=== PATIENT | female | born 1990 | race Caucasian/White ===

== ENCOUNTER 2020-04-20 18:24 | Emergency (ER) | payer OTHER, SELFPAY ==
[2020-04-20 18:32] VITALS: BP 123/66; PULSE 88; RESP 20; TEMP 36.8; O2SAT 99
--- NOTE | 2020-04-20 18:33 | ED.EAR ---
HPI - Ear Problem General Chief complaint: Ear Stated complaint: ear pain/pressure Time Seen by Provider: 04/20/20 18:41 Source: patient and RN notes reviewed History of Present Illness HPI Narrative: Patient is a 29-year-old female who presents the urgent care with complaints of bilateral otalgia. Patient states that the left ear has been hurting for approximately 1 month and she saw her PCP about a month ago and was treated with amoxicillin and told to use Flonase nasal spray. Patient states that she finished the amoxicillin has continued to use the Flonase without any relief. Patient states as of yesterday she has now having right ear pain. No other acute complaints. Denies any other upper respiratory symptoms. No fever. Patient aware of the plan of care. Related Data Allergies Allergy/AdvReac Type Severity Reaction Status Date / Time No Known Allergies Allergy Unknown Verified 04/20/20 18:38 Review of Systems Review of Systems: Narrative: CONSTITUTIONAL: Denies fever, chills, or sweats. EYES: Denies visual changes, redness, or discharge. ENT: Reports of bilateral otalgia, worse on the left CARDIOVASCULAR: Denies chest pain, palpitations, or edema. RESPIRATORY: Denies cough or dyspnea. GASTROINTESTINAL: Denies abdominal pain, nausea, vomiting, or diarrhea. GENITOURINARY: Denies dysuria or hematuria. SKIN: Denies rash or itching. MUSCULOSKELETAL: Denies back pain, joint pain, or myalgia. NEUROLOGIC: Denies headache, numbness, or weakness. All other systems reviewed are negative, except as documented in HPI. PMFSH Comments At the time of my signature, I reviewed and agree with the nursing past medical, surgical, social, and family history. There is no relevant family history pertinent to the patient complaint. Exam Narrative: Exam Narrative: GENERAL: This is a well-nourished, well-developed patient, in no apparent distress. HEAD: normocephalic, atraumatic. EYES: PERRL. Sclera clear/white. Vision is grossly intact. EARS: External ears normal, mildly edematous left external auditory canal without erythema or drainage, very mild fluid noted behind left TM without otitis media. Right TMs normal without perforation. Hearing grossly intact. NOSE: External nose normal with no obvious nasal discharge, nares without redness, no rhinorrhea. SKIN: warm, intact with no suspicious lesions or rash, good texture and turgor. NEURO: awake, alert, and oriented to person, place and time. There were no obvious focal neurologic abnormalities. EXTREMITIES: No clubbing, cyanosis, or edema. No joint tenderness, effusion, or edema noted. No calf tenderness. Negative Homans sign bilaterally. BACK: Nontender without deformity or crepitance. No flank tenderness. Course Vital Signs Vital signs: Vital Signs Temperature 98.2 F 04/20/20 18:32 Pulse Rate 88 04/20/20 18:32 Respiratory Rate 20 04/20/20 18:32 Blood Pressure 123/66 04/20/20 18:32 Pulse Oximetry 99 04/20/20 18:32 Temperature 98.2 F 04/20/20 18:32 Pulse Rate 88 04/20/20 18:32 Respiratory Rate 04/20/20 18:32 Blood Pressure 123/66 04/20/20 18:32 Pulse Oximetry 99 04/20/20 18:32 Reviewed Medical Decision Making MDM Narrative Medical decision making narrative: Advised patient to continue using Flonase nasal spray in conjunction with an antihistamine such as Benadryl or Claritin prior to bedtime. Use eardrops to the left ear as directed. Use warm compress to the ear as needed for comfort. Use ibuprofen as needed for pain. If you develop any increase in pain associated with fever or severe headache?go to the emergency room. Prolonged ear pain without any evidence of otitis may warrant ENT referral. Speak to your PCP regarding that referral. Follow-up with PCP within 2 to 5 days or for worsening symptoms or failure to improve. Differential Diagnosis Differential Diagnosis: Pneumonia, Allergic Rhinitis, Upper respiratory cough syndrome, Pharyngitis, Sinusi
== END 2020-04-20 18:52 | disposition home or self-care (01) ==
PROVIDERS: Emergency Provider Nurse Practitioner Family; PCP Nurse Practitioner
DX: H60.92 Unspecified otitis externa, left ear (principal)
CPT/HCPCS: 99213; G0463

== ENCOUNTER → 2021-06-22 09:55 | Outpatient (CLI) | payer OTHER, SELFPAY ==
--- NOTE | ~2021-06-22 | US_ITS ---
US transvaginal DATE: 06/22/2021 10:36 INDICATION: Pelvic and perineal pain TECHNIQUE: Real-time imaging via transvaginal approach COMPARISON: None FINDINGS: The uterus measures 6.4 cm height, 3 cm AP dimension. The central endometrial echo complex measures 6 mm AP dimension. Right ovary 2.2 x 1.6 x 1.7 cm, with vascular flow. Left ovary 1.8 x 1.3 x 1.7 cm, with vascular flow. No pelvic mass lesion or abnormal pelvic fluid collection is evident. IMPRESSION: No significant abnormality Reviewed, dictated and finalized at [facility] Reviewed, dictated and finalized at [facility]. IMPRESSION: No significant abnormality
== END ==
PROVIDERS: Visit Provider Nurse Practitioner
DX: R10.2 Pelvic and perineal pain (principal)
CPT/HCPCS: 76830

== ENCOUNTER 2021-11-13 18:33 | Emergency (ER) | payer OTHER, SELFPAY ==
[2021-11-13 18:57] VITALS: BP 137/82; PULSE 85; RESP 16; TEMP 36.7; O2SAT 99
--- NOTE | 2021-11-13 19:16 | ED.URI ---
HPI - URI/Sore Throat General Stated Complaint: head cold/cough/chest pain Time Seen by Provider: 11/13/21 19:16 Source: patient and family Mode of arrival: ambulatory History of Present Illness HPI Narrative: Patient presents with a 3-week history of chest congestion cough runny nose and sinus pressure. No shortness of breath and no chest pain. Patient states she is normally healthy individual. And is fully vaccinated for COVID-19. MD elicited complaint: cough, nasal congestion and sinus pain Related Data Allergies Allergy/AdvReac Type Severity Reaction Status Date / Time No Known Allergies Allergy Verified 11/13/21 19:27 Review of Systems Review of Systems: CONSTITUTIONAL: Denies chills, or sweats. Reports fever and generalized body aches EYES: Denies visual changes, redness, or discharge. ENT: Denies otalgia. Reports nasal congestion runny nose and sore throat CARDIOVASCULAR: Denies chest pain, palpitations, or edema. RESPIRATORY: Denies dyspnea. Reports occasional cough GASTROINTESTINAL: Denies abdominal pain, nausea, vomiting, or diarrhea. GENITOURINARY: Denies dysuria or hematuria. SKIN: Denies rash or itching. MUSCULOSKELETAL: Denies back pain, joint pain, or myalgia. Reports generalized body aches NEUROLOGIC: Denies headache, numbness, or weakness. PSYCHIATRIC: Denies anxiety or depression. [facility] Family History Family History (Updated 06/29/14 @ 07:13 by DOCTOR UNKNOWN) Mother Hypertension Social History Social History Smoking status: Current every day smoker Alcohol intake: current Substance use type: marijuana Comments At time of signature, agree with nursing past medical, surgical, social and family history. There is no relevant family history pertinent to the presenting complaint Exam Narrative: The patient is a well-developed, well-nourished in no acute distress. SKIN: Skin is warm and dry without erythema, swelling or exudate. There is good turgor. No tenting. HEAD: Atraumatic. Normocephalic. No temporal or scalp tenderness. EYES: Moist and bright. Sclera and conjunctivae normal. No discharge. PERRLA. Extraocular motions intact. Gross visual acuity intact. EARS: Pinna is normal shape and contour. Clear external auditory canals. TM pearly cardenas with good cone of light, no erythema or suppuration. Bilateral cerumen noted no gross hearing deficit. NOSE: pink, moist mucosa with good air movement. Clear rhinorrhea without nasal flaring. Septum midline. Moderate maxillary sinus pressure and tenderness Mouth: moist mucous membranes. THROAT; mild erythema noted to posterior oropharynx with moderate postnasal drainage. Without exudate or ulceration.. Uvula midline. Normal movement of soft palate. NECK: Supple and nontender with full range of motion without discomfort. No meningeal signs. LUNGS: Equal and bilateral breath sounds without wheezes, rales or rhonchi. CHEST: The chest wall is without retractions or use of accessory muscles. HEART: Has a regular rate and rhythm without murmur, gallops, click or rub. ABDOMEN: Soft, nontender with positive active bowel sounds. No rebound tenderness. EXTREMITIES: Without cyanosis, clubbing or edema. Equal 2+ distal pulses and 2 second capillary refill noted. NEUROLOGIC: alert, active, . The patient moves all extremities with normal muscle strength. Normal muscle tone is noted. Normal coordination is noted. NO focal neurological findings noted. Course Course Level of Care: Express Care Visit Vital Signs Vital signs: Vital Signs Temperature 36.7 C 11/13/21 18:57 Pulse Rate 85 11/13/21 18:57 Respiratory Rate 16 11/13/21 18:57 Blood Pressure 137/82 11/13/21 18:57 Pulse Oximetry 99 11/13/21 18:57 Temperature 36.7 C 11/13/21 18:57 Pulse Rate 85 11/13/21 18:57 Respiratory Rate 16 11/13/21 18:57 Blood Pressure 137/82 11/13/21 18:57 Pulse Oximetry 99 11/13/21 18:57 Please ISABELLA schedule a followup visit with your personal phy
== END 2021-11-13 19:40 | disposition home or self-care (01) ==
PROVIDERS: Emergency Provider Nurse Practitioner Family
DX: J01.00 Acute maxillary sinusitis, unspecified (principal); J06.9 Acute upper respiratory infection, unspecified; Z20.822 Contact with and (suspected) exposure to COVID-19; F17.200 Nicotine dependence, unspecified, uncomplicated; F12.90 Cannabis use, unspecified, uncomplicated
CPT/HCPCS: 87426; 99213; C9803; G0463

== ENCOUNTER 2025-01-19 14:25 | Emergency (ER) | payer SELFPAY ==
--- NOTE | 2025-01-19 14:29 | ED.GENADULT ---
HPI - General Adult General Chief complaint: Unspecified Stated complaint: flu symptoms Time Seen by Provider: 01/19/25 14:41 Source: patient, RN notes reviewed and old records reviewed Mode of arrival: ambulatory Limitations: no limitations History of Present Illness HPI narrative: 34-year-old female presents to the [facility] with complaints of a runny nose. Patient is also requesting a work note for today and tomorrow. Patient states that she called in because of her runny nose and having side pain that she has had since she was a child, currently not having any pain Treatments prior to arrival: none Related Data Home Medications ?Medication ?Instructions ?Recorded ?Confirmed ?Last Taken ?Type lamotrigine 25 mg tablet 25 mg PO DAILY 11/13/21 01/19/25 Unknown History buprenorphine 8 mg-naloxone 2 mg tablet sublingual 01/19/25 Unknown History sublingual tablet lurasidone 60 mg tablet mg 01/19/25 Unknown History sertraline 100 mg tablet mg 01/19/25 Unknown History Allergies Allergy/AdvReac Type Severity Reaction Status Date / Time No Known Allergies Allergy Verified 01/19/25 14:38 Review of Systems Review of Systems: All systems reviewed & are unremarkable except as noted in HPI and below Constitutional: Constitutional: Reports no additional constitutional complaints ENT: Reports as per HPI Cardiovascular: Cardiovascular: Reports no additional cardiovascular complaints, Denies chest pain and Denies dyspnea Respiratory: Respiratory: Reports no additional respiratory complaints, Denies chest congestion, Denies cough and Denies dyspnea Musculoskeletal: Musculoskeletal: Reports no additional musculoskeletal complaints Integumentary/Breasts: Skin/Breast: Reports system reviewed and no additional complaints, except as docu PMFSH Past Medical History Medical History (Updated 01/19/25 @ 19:51 by Angelic Shepard APRN) Bipolar disorder Right flank pain PCOS (polycystic ovarian syndrome) On assisted drug therapy Insulin resistance Family History Family History Mother Hypertension Social History Social History Smoking status: Current every day smoker Alcohol intake: current Substance use type: marijuana Comments At the time of my signature, I reviewed and agree with the nursing past medical, surgical, social, and family history. There is no relevant family history pertinent to the patient complaint. Exam Const: General: cooperative, healthy appearing, comfortable, no acute distress, well developed, alert and well nourished Nutritional Appearance: well nourished Orientation/consciousness: patient oriented x3 Limitations: no limitations HENMT: Head: normal to inspection Ears: hearing grossly normal bilaterally, external ears normal, TM's normal bilaterally, EAC's normal, mastoids normal and no periauricular adenopathy Face/Nose/Sinus: Normal external nose present, Nasal discharge present clear bilateral, sinuses nontender and face symmetric Throat: posterior oropharynx normal, uvula midline, postnasal drainage and no uvular edema Eyes: General: appearance normal, both eyes and all related structures Alignment and Position: alignment normal Neck: Neck: normal visual inspection, full ROM, no lymphadenopathy and no meningeal signs Chest: Chest palpation & inspection: normal inspection of the chest Resp: Effort & Inspection: normal respiratory effort and able to speak in complete sentences Auscultation: clear to auscultation bilaterally, no crackles, no rales, no rhonchi and no wheezes Cardio: Rate: regular rate Skin: General skin exam: normal color and no rashes or lesions noted Neuro: General: patient oriented x3, gait normal, moves all extremities and no meningeal signs Cognition (Neuro): normal cognition Speech: normal speech Gait exam (Neuro): Normal gait present Extrem: General: normal to inspection, full ROM, capillary refill normal and normal gait Psych: Appearance: grossly normal and well kempt Mental Status: mental status grossly normal Speech and movement: Normal speech and movement present and Clear speech present Affect: normal affect Attitude: cooperative Course Course Level of Care: Express Care Visit Vital Signs Vital signs: Vital Signs Temperature 97.0 F L 01/19/25 14:33 Pulse Rate 86 01/19/25 14:33 Respiratory Rate 16 01/19/25 14:33 Blood Pressure 129/62 01/19/25 14:33 Pulse Oximetry 95 01/19/25 14:33 Oxygen Delivery Room Air 01/19/25 14:33 Temperature 97.0 F L 01/19/25 14:33 Pulse Rate 86 01/19/25 14:33 Respiratory Rate 16 01/19/25 14:33 Blood Pressure 129/62 01/19/25 14:33 Pulse Oximetry 95 01/19/25 14:33 Oxygen Delivery Room Air 01/19/25 14:33 Reviewed Medical Decision Making MDM Narrative Medical decision making narrative: Patient sitting comfortably in exam room. Nontoxic, vitals stable. Patient in no acute distress Patient presents for a work note. States that she has had a runny nose. Requesting flu and COVID test which were negative. Patient appropriate for outpatient treatment with close follow-up Discharge instructions reviewed with patient, as well as provided in writing per nursing staff. The instructions also include specific and strict return/GO TO THE ER as well as f/u information. All questions have been answered, and the patient deny any further questions with discharge and discharge plan. Some parts of this dictation were generated by voice recognition software and may contain typographical and/or grammatical inaccuracies. Differential Diagnosis Differential Diagnosis: Seasonal allergies, URI, flu, cold Medical Records Medical records reviewed: Yes I reviewed the external patient's medical records. Vital Signs Vital Signs: Vital Signs Temperature 97.0 F L 01/19/25 14:33 Pulse Rate 86 01/19/25 14:33 Respiratory Rate 16 01/19/25 14:33 Blood Pressure 129/62 01/19/25 14:33 Pulse Oximetry 95 01/19/25 14:33 Oxygen Delivery Room Air 01/19/25 14:33 Temperature 97.0 F L 01/19/25 14:33 Pulse Rate 86 01/19/25 14:33 Respiratory Rate 16 01/19/25 14:33 Blood Pressure 129/62 01/19/25 14:33 Pulse Oximetry 95 01/19/25 14:33 Oxygen Delivery Room Air 01/19/25 14:33 Reviewed Lab Data Lab results reviewed: Yes I reviewed the patient's lab results. Labs: Lab Results 01/19/25 Range/Units 14:36 POC Influenza A Ag Negative (Negative) POC Influenza B Ag Negative (Negative) POC SARS CoV-2 Ag Negative (Negative) Reviewed Critical Care Time Critical Care Time Critical Care Time: No Discharge Plan Discharge Clinical Impression: Rhinorrhea, Seasonal allergies Patient Disposition: Home, Self-Care Condition: Stable Instructions: Antibiotic Form, Allergies (ED), Cold Symptoms (ED) Additional Instructions: Take Claritin daily Call make an appointment with your doctor for close follow-up Patient Language: Citizen Of [place] Prescriptions: New loratadine [Allergy Relief (loratadine)] 10 mg tablet 10 mg PO DAILY Qty: 30 0RF No Action albuterol sulfate [ProAir HFA] 90 mcg/actuation HFA aerosol inhaler 2 puff INHALATION QID PRN (Reason: shortness of breath or wheezing) Qty: 18 0RF lamotrigine 25 mg tablet 25 mg PO DAILY sertraline 100 mg tablet buprenorphine-naloxone 8-2 mg tablet, sublingual SUBLINGUAL lurasidone 60 mg tablet Follow-up/Referrals: UNKNOWN,DOCTOR [Non-Staff] - Stand Alone Forms: Work/School Release IP Time of Disposition: 14:51
[2025-01-19 14:33] VITALS: BP 129/62; PULSE 86; RESP 16; TEMP 36.1; O2SAT 95
--- OUTSIDE RECORDS SUMMARY | 2025-01-19 14:55 | XMS_ITS | Patient Health Record ---
Author Organization [facility] Address [address] [place] [address] Care Team Providers Care Executive Admin Name Role Phone Johnathan Pimentel Primary Care Provider Reason For Referral No Information Encounters Encounter Location Date Provider Diagnosis [address] [place] [address] 07/21/2024 Johnathan Pimentel Plan Of Treatment No Information
--- OUTSIDE RECORDS SUMMARY | 2025-01-19 14:55 | XMS_ITS | Clinical Summary ---
Author Organization [address] Address [address] [place] [id number] Care Team Providers Care [place] Name Role Phone Hailey Garrido MD Primary Care Provider + Allergies No known active allergies Medications cephalexin (KEFLEX) 500 mg capsule TK 1 C PO TID 0 01/22/2019 Active phenazopyridine (PYRIDIUM) 200 mg tablet TAKE 1 TABLET BY MOUTH THREE TIMES A DAY WITH FOOD NEEDED 0 01/18/2019 Active hydrOXYzine (ATARAX) 25 mg tablet 03/20/2021 Active fluconazole (DIFLUCAN) 150 mg tablet Take 150 mg by mouth daily 01/19/2021 Active clonazePAM (KlonoPIN) 0.5 mg tablet 03/20/2021 Active metFORMIN (GLUCOPHAGE) 500 mg tablet Take 500 mg by mouth 05/01/2020 Active Active Problems Problem Noted Date Diagnosed Date Infected sebaceous cyst 01/31/2019 Current every day smoker 01/31/2019 Medical History Medical History Date Comments PCOS (polycystic ovarian syndrome) Depression Over weight Family History Medical History Relation Name Comments No Known Problems Brother No Known Problems Father No Known Problems Father's Brother No Known Problems Father's Sister No Known Problems Maternal Grandfather No Known Problems Maternal Grandmother No Known Problems Mother No Known Problems Mother's Brother No Known Problems Mother's Sister No Known Problems Paternal Grandfather No Known Problems Paternal Grandmother No Known Problems Sister Relation Name Status Comments Brother Father Father's Brother Father's Sister Maternal Grandfather Maternal Grandmother Mother Mother's Brother Mother's Sister Paternal Grandfather Paternal Grandmother Sister Social History Tobacco Use Types Packs/Day Years Used Date Smoking Tobacco: Every Day Cigarettes 0.3 0.5 Smokeless Tobacco: Never Tobacco Cessation:Ready to Q uit: Yes; Counseling Given: Yes Alcohol Use Standard Drinks/Week Comments Yes 1 (1 standard drink = 0.6 oz pur e alcohol) Personal Safety Answer Date Recorded Getting School Help Needed Not on file 12/26 Comments No Sex and Gender Information Value Date Recorded Sex Assigned at Not on file Legal Sex Female 12:43 PM [employer] Gender Identity Not on file Sexual Orientation Not on file Obstetrics History Last Filed Vital Signs Vital Sign Reading Time Taken Comments Blood Pressure 124/80 08/14/2021 2:10 PM CDT Pulse 85 08/14/2021 2:10 PM CDT Temperature 37 C (98.6 F) 08/14/2021 2:10 PM CDT Respiratory Rate 16 07/31/2021 2:27 PM CDT Oxygen Saturation 95% 08/14/2021 2:10 PM CDT Inhaled Oxygen Concentration - - Weight 95.3 kg (210 lb) 08/14/2021 2:10 PM CDT Height 160 cm (5' 3 ) 08/14/2021 2:10 PM CDT Body Mass Index 37.2 08/14/2021 2:10 PM CDT Plan of Treatment Not on file Insurance [facility] Care Teams [place] Relationship Specialty Start Date End Date Hailey Garrido MD [address] [id number] PCP - General Gynecology 01/31/19
--- OUTSIDE RECORDS SUMMARY | 2025-01-19 14:55 | XMS_ITS | Clinical Summary ---
Author Organization [facility] [employer] [place] Address [address] [place] [address] Care Team Providers Care Bus Operator Name Role Phone Joseline Neal MD Primary Care Provider [phone] Allergies No known active allergies Medications clonazePAM (KlonoPIN) 0.5 mg TabletIndicatio ns:Anxiety state Take 1 Tablet (0.5 mg) by mouth 1 time daily as needed for Anxiety. 30 Tablet 2 Active sertraline (ZOLOFT) 100 mg tabletIndicatio ns:Moderate episode of recurrent major depressive disorder (CMS/HCC) Take 2 Tablets (200 mg) by mouth daily. 60 Tablet 2 Active Additional Information Patient taking differently: 100 mgOral DAILY, Reported on 02/08/2024 lurasidone HCl (LATUDA ORAL) Take by mouth. A ctive Active Problems Problem Noted Date Diagnosed Date Pelvic floor dysfunction in female 12/25/2021 Psychophysiological insomnia 02/24/2020 Interstitial cystitis 02/17/2020 Anxiety state 02/17/2020 Current every day smoker 01/31/2019 Resolved Problems Problem Noted Date Diagnosed Date Resolved Date Bipolar depression 02/17/2020 1 Encounters Date Type Department Care Team Description 01/07/2025 External Device Data [facility] ABSTRACTION Provider, Abstract 01/06/2025 External Device Data [facility] ABSTRACTION Provider, Abstract 01/03/2025 External Device Data [facility] ABSTRACTION Provider, Abstract 12/20/2024 External Device Data [facility] ABSTRACTION Provider, Abstract 11/29/2024 External Device Data [facility] ABSTRACTION Provider, Abstract 11/23/2024 External Device Data [facility] ABSTRACTION Provider, Abstract 11/23/2024 External Device Data [facility] ABSTRACTION Provider, Abstract from Last 3 Months Immunizations Immunization Administration Dates Next Due (ADACEL/BOOSTRIX)(10 YR UP) TDAP VACCINE, 0.5ML, IM 02/08/2024 INFLUENZA VACCINE QUADRIVALENT 6 MOS UP IM 08/03 Family History Medical History Relation Name Comments Hypertension Maternal Grandmother Asthma Mother Relation Name Status Comments Brother Alive Father Alive Maternal Grandfather Alive Maternal Grandmother Alive Mother Alive Paternal Grandfather Alive Paternal Grandmother Alive Sister Alive Social History Tobacco Use Types Packs/Day Years Used Date Smoking Tobacco: Every Day Cigarettes Smokeless Tobacco: Never Tobacco Cessation:Ready to Q uit: Not Asked; Counseling Given: Not Answered Alcohol Use Standard Drinks/Week Comments Not Currently 0 (1 standard drink = 0.6 oz pur e alcohol) Comments No Sex and Gender Information Value Date Recorded Sex Assigned at Not on file Legal Sex Female 8:20 AM CDT Gender Identity Not on file Sexual Orientation Not on file Last Filed Vital Signs Vital Sign Reading Time Taken Comments Blood Pressure 108/68 02/08/2024 2:21 PM CDT Pulse 106 02/08/2024 2:21 PM CDT Temperature 36.7 C (98 F) 02/08/2024 2:21 PM CDT Respiratory Rate 18 06/19/2022 1:04 PM CDT Oxygen Saturation 99% 02/08/2024 2:21 PM CDT Inhaled Oxygen Concentration - - Weight 103.4 kg (228 lb) 02/08/2024 2:21 PM CDT Height 162.6 cm (5' 4 ) 02/08/2024 2:21 PM CDT Body Mass Index 39.14 02/08/2024 2:21 PM CDT Plan of Treatment Health Maintenance Due Date Last Done Comments PNEUMOCOCCAL VACCINE 0-49 YEARS (1 of 2 - PCV) 1998 HEPATITIS B VACCINES (1 of 3 - 19+ 3-dose series) 2011 PAP SMEAR 06/22/2023 06/22/2020 INFLUENZA VACCINE (#1) 2024 2, 08/03/2019 DTAP/TDAP/TD VACCINES (2 - T d or Tdap) 02/07/2034 02/08/2024 HPV VACCINES Aged Out No longer eligi ble based on patient's age to complete this topic Procedures Procedure Name Priority Date/Time Associated Diagnosis Comments CERV/VAG CYTO SCREEN PAP W/HPV Routine 06/22/2020 1:52 PM CDT Screening for cervical cancer from Last 3 Months or Most Recently Relevant to Health Maintenance Results * CERV/VAG CYTO SCREEN PAP W/HPV (06/22/2020 1:52 PM CDT) DIAGNOSIS (PAP): Comment [facility] Comment:NEGATIVE FOR INTRAEP ITHELIAL LESION OR MALIGNANCY. ADEQUACY: Comment [facility] Comment: Satisfactory for evaluation. Endocervical and/or squamous metaplastic cells (endocervical component) are present. CLINICIAN PROVIDED ICD10 Comment [facility] Comment:Z12.4 PERFORMED BY (PAP): Comment [facility] Comment:Srikanth Seymour totechnologist RESULT (PAP): . [facility] SEE NOTE (PAP): Comment [facility] Comment: The Pap smear is a screening test designed to aid in the detection of premalignant and malignant conditions of the uterine cervix. It is not a diagnostic procedure and should not be used as the sole means of detecting cervical cancer. Both false-positive and false-negative reports do occur. CYTOLOGY OPTICIAN APPRENTICE DISPENSING METHODOLOGY Comment [facility] Comment: This liquid based ThinPrep(R) pap test was screened with the use of an image guided system. HPV HIGH RISK DETECTION Negative Negative [facility] Comment: This nucleic acid amplification high-risk HPV test detects thirteen high-risk types (16,18,31,33,35,39,45,51,52,56,58,59,68) without differentiation. Genital SWAB OF ENDOCERVIX / Unknown 06/22/2020 1:52 PM CDT 06/23/2020 Narrative [facility] - 06/27/2020 3:35 AM CDT Performed at: 01 - [address] [id number] University Counselor: Kassandra Pena MD, Phone: [phone] Performed at: 02 - [address] [id number] University Counselor: Kassandra Pena MD, Phone: [phone] Specimen Comment: No. of containers..01 ThinPrep Vial us Jocelyn Swartz PRODUCE WRAPPER PATHOLOGY/CYTOLOGY CHAVAAyad ANA Final Result [facility] [phone] from Last 3 Months or Most Recently Relevant to Health Maintenance Insurance [employer] Care Teams Bus Operator Relationship Specialty Start Date End Date Joseline Neal MD [address] [place] [id number] PCP - General Family Practice 09/09/22
--- OUTSIDE RECORDS SUMMARY | 2025-01-19 14:55 | XMS_ITS | Encounter Summary ---
Author Organization [facility] Address [address] [place] [address] Phone Care Team Providers Care Tour Guide Name Role Phone No, Physician Primary Care Provider [phone] Miscellaneous, Not In File Primary Care Provider Unavailable Referral, Self Primary Care Provider Unavailabl e Miscellaneous, Not In File Primary Care Provider Unavailable Hailey Garrido MD Primary Care Provider + Encounter Details Date Type Department Care Team (Late st Contact Info) Description 10/10/2017 Orders Only [facility] ProviderElaine MD [address] [place] [address] Social History Tobacco Use Types Packs/Day Years Used Date Smoking Tobacco: Every Day Cigarettes Smokeless Tobacco: Never Comments Unknown Sex and Gender Information Value Date Recorded Sex Assigned at Not on file Legal Sex Female 12:43 PM WAREHOUSE SHIPPING SUPERVISOR Gender Identity Not on file Sexual Orientation Not on file documented as of this encounter Plan of Treatment Not on file documented as of this encounter Procedures Procedure Name Priority Date/Time Associated Diagnosis Comments DISCHARGE LABORATORY CUMULATIVE REPORT 10/10/2017 12:00 AM WAREHOUSE SHIPPING SUPERVISOR documented in this encounter Results * DISCHARGE LABORATORY CUMULATIVE REPORT (10/10/2017 12:00 AM WAREHOUSE SHIPPING SUPERVISOR) Narrative 10/10/2017 12:00 AM WAREHOUSE SHIPPING SUPERVISOR Ordered by an unspecified provider. Historical Provider LAB BLOOD ORDERABLES Jeanine l Result documented in this encounter Visit Diagnoses Not on filedocumented in this encounter Additional Health Concerns Infection Onset Date Last Indicated Resolved Time COVID: Suspected 03/26/2021 03/26/2021 03/26/2021 1:34 PM CDT COVID: Suspected 08/14/2021 08/14/2021 08/14/2021 2:43 PM CDT COVID: Suspected 08/14/2021 08/14/2021 08/14/2021 9:36 PM CDT documented as of this encounter Care Teams Tour Guide Relationship Specialty Start Date End Date No, Physician PCP - General 10/10/17 07/30/18 Miscellaneous, Not In File PCP - General 07/31/18 Referral, Self PCP - General 01/26/19 01/27/19 Miscellaneous, Not In File PCP - General 01/28/19 Hailey Garrido MD [address] [address] PCP - General Gynecology 01/31/19 documented as of this encounter
--- OUTSIDE RECORDS SUMMARY | 2025-01-19 14:55 | XMS_ITS | Clinical Summary ---
Author Organization [facility] Address [address] [address] Phone Care Team Providers Care Information Specialist Name Role Phone Provider, Unknown Primary Care Provider Unavaila ble Allergies No known active allergies Medications lamoTRIgine (LaMICtal) 25 MG Tablet 2 Active methylPREDNISol one (Medrol) 4 MG Tablet Therapy PackIndications :Acute pain of right knee Use as per instructions on package. 21 Tablet 2 Active Active Problems No known active problems Social History Tobacco Use Types Packs/Day Years Used Date Smoking Tobacco: Some Days Smokeless Tobacco: Never Comments No Sex and Gender Information Value Date Recorded Sex Assigned at Not on file Legal Sex Female 7:26 PM CDT Gender Identity Not on file Sexual Orientation Not on file Last Filed Vital Signs Vital Sign Reading Time Taken Comments Blood Pressure 118/80 12/11/2021 1:24 PM AVIATION PROGRAM MANAGER Pulse 85 12/11/2021 1:24 PM AVIATION PROGRAM MANAGER Temperature 37.2 C (99 F) 12/11/2021 1:24 PM AVIATION PROGRAM MANAGER Respiratory Rate 16 12/11/2021 1:24 PM AVIATION PROGRAM MANAGER Oxygen Saturation 97% 12/11/2021 1:24 PM AVIATION PROGRAM MANAGER Inhaled Oxygen Concentration - - Weight 86.2 kg (190 lb) 12/11/2021 1:24 PM AVIATION PROGRAM MANAGER Height - - Body Mass Index - - Plan of Treatment Health Maintenance Due Date Last Done Comments Hepatitis C Virus (HCV) Screening 1990 TdaP Immunization 1992 Hepatitis B Immunization (1 of 3 - 19+ 3-dose series) 2011 Influenza Immunization (#1) 2024 08/03/2019 SARS-COV-2 Immunization (2023- season) 2024 02/09/2021, 01/20/2021 Respiratory Syncytial Virus (RSV) Immunization (Adult) (1 - 1-dose 75+ series) 2067 Meningococcal Immunization (ACWY) Aged Out No longer eligible b ased on patient's age to complete this topic Pneumococcal Immunization Combined Aged Out No longer eligible b ased on patient's age to complete this topic Rotavirus Immunization Aged Out No lo nger eligible based on patient's age to complete this topic Insurance Care Teams Information Specialist Relationship Specialty Start Date End Date Provider, Unknown UNKNOWN PCP - General 12/11/21
--- OUTSIDE RECORDS SUMMARY | 2025-01-19 14:55 | XMS_ITS | Referral Summary ---
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
--- OUTSIDE RECORDS SUMMARY | 2025-01-19 14:55 | XMS_ITS ---
Author Organization [facility] Address [address] [place] [address] Care Team Providers Care Overnight Caregiver Name Role Phone Johnathan Pimentel Primary Care Provider [phone] Encounters Encounter Location Date Provider Diagnosis [address] [place] [address] 07/21/2024 Johnathan Pimentel Plan Of Treatment No Information Progress Notes * Ozzy CHURCHB:1990 (34 yo F)Acc No.[id number]:07/21/2024 Patient: Jaycee JONES :1990 A ge:34 Y S ex:Female Address:[address] [place] [address], [address] * true * Date: Generated for Luis Ai aren/Deisy/eTransmitting on: 0 01/19/2025 02:54 PM CDT
[2025-01-19 14:57] LABS: EDCOVIDSCREEN Negative (Negative); EDINFLUASCREEN Negative (Negative); EDINFLUBSCREEN Negative (Negative)
== END 2025-01-19 14:55 | disposition home or self-care (01) ==
PROVIDERS: Emergency Provider Nurse Practitioner
DX: R09.89 Other specified symptoms and signs involving the circulatory and respiratory systems (principal); J30.2 Other seasonal allergic rhinitis; Z20.822 Contact with and (suspected) exposure to COVID-19; F17.200 Nicotine dependence, unspecified, uncomplicated; F12.90 Cannabis use, unspecified, uncomplicated; E28.2 Polycystic ovarian syndrome; F31.9 Bipolar disorder, unspecified; E88.819 Insulin resistance, unspecified
CPT/HCPCS: 87426; 87804; 99213; G0463

== ENCOUNTER 2025-05-11 16:12 | Emergency (ER) | payer MEDICAID, SELFPAY ==
--- OUTSIDE RECORDS SUMMARY | 2025-05-11 16:15 | XMS_ITS | Clinical Summary ---
Author Organization [facility] [employer] [place] Address [address] [place] [address] Care Team Providers Care Digital Operations Analyst Name Role Phone Unavailable Primary Care Provider Unavailabl e Allergies No known active allergies Medications clonazePAM [...] Encounters Date Type Department Care Team Description 05/02/2025 External Device Data [facility] ABSTRACTION Provider, Abstract 02/10/2025 Telephone [facility] [address] [place] [address] Joseline Neal MD Follow Up from Last 3 Months Immunizations Immunization Administration [...] 2:21 PM CDT Height 162.6 cm (5' 4) 02/08/2024 2:21 PM CDT Body Mass Index 39.14 02/08/2024 2:21 PM CDT Plan of Treatment Health Maintenance Due Date Last Done Comments HEPATITIS B VACCINES (1 of 3 - 19+ 3-dose series) 2011 PAP SMEAR 06/22/2023 06/22/2020 INFLUENZA VACCINE (#1) 2025 2, 08/03/2019 CERVICAL CANCER SCREENING 06/22/2025 HPV/Cotest (21-29) 06/22/2025 06/22/2020 HPV/Cotest (30-65) 06/22/2025 06/22/2020 DTAP/TDAP/TD VACCINES (2 - Td or Tdap) 02/07/2034 02/08/2024 HPV VACCINES Aged [...] false-positive and false-negative reports do occur. CYTOLOGY DATA MODELING ARCHITECT METHODOLOGY Comment [facility] Comment: This liquid [...] 3:35 AM CDT Performed at: 01 - [address] [id number] Trailer Steerer: Kassandra Pena MD, Phone: [phone] Performed at: 02 - [address] [id number] Trailer Steerer: Kassandra Pena MD, Phone: [phone] Specimen Comment: No. of containers..01 ThinPrep Vial Jocelyn Swartz NP PATHOLOGY/CYTOLOGY BYRON PEREZ Final Result [facility] [phone] from Last 3 Months or Most Recently Relevant to Health Maintenance Insurance * Guarantor: MARQUITA [employer] A DANIELLE Urena (C) Account Type Relation to Patient Date of Phone Billing Address Corporate Employer ATTN: SLOAN MUNOZ [address] [address] [employer]
--- OUTSIDE RECORDS SUMMARY | 2025-05-11 16:15 | XMS_ITS | Patient Health Record ---
Author Organization [facility] Address [address] [place] [address] Care Team Providers Care Ballpoint Pens Assembler Name Role Phone Johnathan Pimentel Primary Care Provider [phone] Monserrat Ma Unavailable [phone] Milli Soto Unavailable [phone] Lidia Bullock Unavailable [phone] Allergies No Known Allergies Results Component Value Reference Range Notes Test, Urine Reviewed date:02/10/2025 02:32:02 PM Interpretation:negative Performing Lab: Notes/Report: negative Test, Urine neg Negative - Negative Breathalyzer Reviewed date:02/10/2025 03:33:55 PM Interpretation:.000 Performing Lab: Notes/Report: .000 JAYLAN .000 QuantiFERON-TB Gold Plus (90 9524) Reviewed date:02/15/2025 08:09:03 AM Interpretation: [facility]forming [facility] [address] [facility], Phone - [phone], Director - PhDRicchisdi Notes/Report: QuantiFERON Incubation Incubation performed. QuantiFERON-TB Gold Plus Negative Negative No response to M tuberculosis antigens detected. Infection with M tuberculosis is unlikely, but high risk individuals should be considered for additional testing (ATS/IDSA/CDC Clinical Practice Guidelines, 2017). The reference range is an Antigen minus Nil result of <0.35 IU/mL. Chemiluminescence immunoassay methodology QuantiFERON Criteria QuantiFERON-TB Gold Plus is a qualitative indirect test for M tuberculosis infection (including disease) and is intended for use in conjunction with risk assessment, radiography, and other medical and diagnostic evaluations. The QuantiFERON-TB Gold Plus result is determined by subtracting the Nil value from either TB antigen (Ag) value. The Mitogen tube serves as a control for the test. QuantiFERON TB1 Ag Value 0.10 QuantiFERON TB2 Ag Value 0.09 QuantiFERON Nil Value 0.01 QuantiFERON Mitogen Value >10.00 12 Panel Urine Drug Screen Reviewed date:02/10/2025 02:33:18 PM Interpretation: Performing Lab: Notes/Report: THC pos SURYA neg MOP (OPI) neg AMP neg MET neg BAR neg BZO pos MDMA neg MTD neg OXY neg PCP neg BUP neg 12 Panel Urine Drug Screen Reviewed date:02/23/2025 10:30:14 AM Interpretation: Performing Lab: Notes/Report: THC pos SURYA neg MOP (OPI) neg AMP neg MET neg BAR neg BZO pos MDMA neg MTD ne OXY neg PCP neg BUP pos Reason For Referral Reason benefit application Diagnosis 1 Opioid use disorder (F11.99) Referral Organization [facility] Referring Provider First Name Monserrat Referring Provider Last Name Francesca Referring Provider [facility] Referred Provider Specialty Behavioral [facility] General Notes Monserrat Ma 11:10:46 AM > Currently without insurance. Needing help with benefit application Clinical Notes Riya Villarreal 01:21:18 PM >Call to client, no answer LVM.Phil Michelle R 01/31/2025 02:54:09 PM >Sent client info to [facility] to help enroll in insurance plan. Referral Priority Routine Medications Medication SIG (Take, Route, Frequency, Duration) Notes Start Date End Date Status Sertraline HCl 100 MG 1 tablet Orally On ce a day Active Dicyclomine HCl 20 MG 1 tablet Orally Three times a day As needed BLADDER SPASMS Active Buprenorphine HCl-Naloxone HCl 8-2 MG 1 tablet under the tongue and allow to dissolve Sublingual twice a day Per Violet may use CAF funding 02/15/2025 Active Senna 8.6 MG 2 tablets at bedtime as needed Orally Once a day; Duration: 30 days As needed constipation 02/10/2025 Active Latuda 60 MG 1 tablet in the evening with food Orally Once a day Active Social History Tobacco Use: Social History Observation Description Date Details (start date - stop date) Current Smoker NA - NA PRAPARE Question Answer Notes Date Completed/Updated: 02/10/2025 What is your current housing situation? I have h ousing Are you worried about losing your housing? No What is the highest level of school that you have finished? More than high school What is your current work situation? Unemployed and seeking work In the past year, have you o r any family members you live with been unable to get any of the following when it was really needed? Check all that apply I do not have problems meeting my needs Has lack of transportation k ept you from medical appointments, meetings, work or from getting things needed for daily living? No How often do you see or talk to people that you care about and feel close to? (For example: talking to friends on the phone, visiting friends or family, going to evangelical or club meetings) More than 5 times a week How stressed are you? Stress is when someone feels tense, nervous, anxious, or can\t sleep at night because their mind is troubled Somewhat In the past year have you sp ent more than 2 nights in a row in a fpc, intermediate, snf center, or juvenile correctional facility? No Are you a refugee? I choose not to answer this q uestion What country are you from? I choose not to answe r this question Do you feel physically and e motionally safe where you currently live? Yes In the past year, have you b een afraid of your partner or ex-partner? No PRAPARE Score: 3 Tobacco Control (Standard) Question Answer Notes Tobacco use: Current smoker Problems Problem Type SNOMED Code ICD Code Onset Dates Problem Status W/U Status Risk Notes Problem Obesity (257200484) Obesity (BMI 30-39.9) (E66.9) Active confirmed Problem Opioid use disorder (4410535700) Opioid use disorder (F11.99) Active confirmed Problem Tobacco user (607495265) Nicotine dependence with current use (F17.200) Active confirmed Vital Signs Heart Rate 80 /min 02/15/2025 Temperature 97.3 degrees Fahrenheit 02/10/2025 Respiratory Rate 16 /min 02/15/2025 Oximetry 98 % 02/15/2025 Blood pressure diastolic 82 mm Hg 02/15/2025 Height 63 in 02/15/2025 Blood pressure systolic 120 mm Hg 02/15/2025 Weight 217 lbs 02/15/2025 BMI 38.44 kg/m2 02/15/2025 Encounters Encounter Location Date Provider Diagnosis [facility] [address] [place] [address] 01/24/2025 Monserrat Ma Opioid use disorder F11.99 ; Nicotine dependence, unspecified, uncomplicated F17.200 ; Nutritional counseling Z71.3 and Obesity (BMI 30-39.9) E66.9 [facility] [place] [address] 02/10/2025 Johnathan Pimentel Adult general medica l exam Z00.00 and Opioid use disorder F11.99 [facility] [address] [place] [address] 02/10/2025 Lidia Bullock [facility] [place] [address] 02/15/2025 Monserrat Ma Opioid use disorder F11.99 ; Obesity (BMI 30-39.9) E66.9 and Nicotine dependence with current use F17.[address] [address] 01/24/2025 Johnathan Pimentel [address] [place] [address] 07/21/2024 Johnathan Pimentel [place] [address] [place] [address] 02/13/2025 Milli Soto Opioid use disorder F11.99 Assessments Encounter Date Diagnosis (ICD Code) Assessment Notes Treatment Notes Treatment Clinical Notes Section Notes 01/24/2025 Opioid use disorder (ICD-10 - F11.99) 02/10/2025 Adult general medical exam (ICD-10 - Z00.00) 02/10/2025 Opioid use disorder (ICD-10 - F11.99) 02/13/2025 Opioid use disorder (ICD-10 - F11.99) 02/15/2025 Obesity (BMI 30-39.9) (ICD-10 - E66.9) 02/15/2025 Opioid use disorder (ICD-10 - F11.99) 01/24/2025 Nicotine dependence, unspecified, uncomplicated (ICD-10 - F17.200) 01/24/2025 Nutritional counseling (ICD-10 - Z71.3) 02/15/2025 Nicotine dependence with current use (ICD-10 - F17.200) 01/24/2025 Obesity (BMI 30-39.9) (ICD-10 - E66.9) 01/24/2025 Other Discussed medication side effects, adverse effects, risks, benefits, as well as interactions. Encouraged non-use of opioids. Has naloxone. Recommended participation in recovery groups and/or counseling services. May contact office with questions or concerns. 02/10/2025 Other [facility] SIGNED FOR [facility] 02/10/2025 Other Clinician met w [facility] client to assess needs for residential services. Clinician gathered information regarding historical presentation of mental health and substance use symptoms including withdrawal, HIV Risk assessment, psychiatric hospitalization history and presenting concern. Clinician conducted PHQ9 and CSSRS assessments as well as social drivers of health screening for the purposes of identifying additional service needs. 02/15/2025 Other Discussed medication side effects, adverse effects, risks, benefits, as well as interactions. Encouraged non-use of opioids. Has naloxone. Recommended participation in recovery groups and/or counseling services. May contact office with questions or concerns. Patient may self-administe r their own medications or may self-administe r their own oral medications per [place] Protocol. Plan Of Treatment Pending Test Test Name Order Date Test, Urine 01/24/2025 12 Panel Urine Drug Screen 01/24/2025 Medical (General) History Medical History History ICD Code Bipolar disorder Bladder disorder PCOS Surgical History Surgery Date(Month/Year) Hospitalization History Reason Date(Month/Year) detox
--- OUTSIDE RECORDS SUMMARY | 2025-05-11 16:15 | XMS_ITS | Referral Summary ---
Author Organization [address] Address [address] [place] [phone] Care Team Providers Care Spike Machine Feeder Name Role Phone Hailey Garrido MD Primary Care Provider + Encounters Date Type Department Care Team Description 02/28/2025 [facility] Outreach [facility] [address] [place], [place] [phone] Arin Adams 02/10/2025 Documentation [facility] [address] [place], [place] [phone] Carri Rodriguez 02/08/2025 11:58 AM CDT - 02/10/2025 11:55 AM CDT Hospital Encounter [facility] 1 [place] [address] Aissatou Andre MD Opioid withdrawal (HCC) (Primary Dx); Current every day smoker Discharge Disposition: Discharge to home or self care 02/09/2025 Documentation [facility] [address] [place], [place] [phone] Carri Rodriguez 02/09/2025 Documentation [facility] [address] [place], [place] [phone] Carri Rodriguez from Last 3 Months Allergies No known active allergies Medications lurasidone (LATUDA) 60 mg tabletIndicatio ns:Depression associated with Bipolar Disorder Take 1 tablet (60 mg total) by mouth daily Active sertraline (ZOLOFT) 100 mg tablet Take 1 tablet (100 mg total) by mouth nightly Active buprenorphine-n aloxone (SUBOXONE) 8-2 mg per filmIndications :Opioid Withdrawal Symptoms Place 1 Film under the tongue 2 (two) times a day for 6 doses 6 Film 02/10/2025 Active dicyclomine (BENTYL) 20 mg tabletIndicatio ns:Abdominal Pain with Cramps Take 1 tablet (20 mg total) by mouth every 6 (six) hours as needed (Body ache) for up to 10 doses 10 tablet 02/10/2025 Active Active Problems Problem Noted Date Diagnosed Date Opioid withdrawal 02/08/2025 Infected sebaceous cyst 01/31/2019 Current every day smoker 01/31/2019 Social History Tobacco Use Types Packs/Day Years Used Date Smoking Tobacco: Every Day Cigarettes 0.3 0.5 Smokeless Tobacco: Never Tobacco Cessation:Ready to Q uit: Yes; Counseling Given: Yes Alcohol Use Standard Drinks/Week Comments Yes 1 (1 standard drink = 0.6 oz pur e alcohol) Personal Safety Answer Date Recorded Have you ever been in or are you currently in a harmful physical or emotional relationship or is someone making you feel afraid or unsafe? 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[employer] Gender Identity Not on file Sexual Orientation Not on file Last Filed Vital Signs Vital Sign Reading Time Taken Comments Blood Pressure 136/88 02/10/2025 11:00 AM CDT Pulse 87 02/10/2025 11:00 AM CDT Temperature 36.2 C (97.1 F) 02/10/2025 11:00 AM CDT Respiratory Rate 18 02/10/2025 11:00 AM CDT Oxygen Saturation 98% 02/10/2025 11:00 AM CDT Inhaled Oxygen Concentration - - Weight 96 kg (211 lb 10.3 oz) 02/09/2025 2:47 AM CDT Height 160 cm (5' 3) 02/08/2025 1:48 PM CDT Body Mass Index 37.49 02/08/2025 1:48 PM CDT Plan of Treatment Not on file Procedures Procedure Name Priority Date/Time Associated Diagnosis Comments HCG, URINE, QUALITATIVE Routine 02/09/2025 1:52 PM CDT EGFR Routine 02/09/2025 7:10 AM CDT DIFFERENTIAL AUTO Routine 02/09/2025 7:1 0 AM CDT MAGNESIUM Routine 02/09/2025 7:10 AM CDT COMPREHENSIVE METABOLIC PANEL Routine 02/09/2025 7:10 AM CDT CBC WITH AUTO DIFFERENTIAL Routine 02/09/2025 7:10 AM CDT from Last 3 Months Results * hCG, urine, qualitative (02/09/2025 1:52 PM CDT) HCG, ur Negative Negative Urine 02/09/2025 1:52 PM CDT 02/09/2025 1:58 PM CDT us Aissatou Andre MD LAB URINE ORDERABLES Final Re sult [facility]IKA [facility] ([place]) 1 [facility] [place] [address] * eGFR (02/09/2025 7:10 AM CDT) eGFR >90 >=60 mL/min/1. 73 m2 Comment: Interpretive Data Reference Interval Normal >/= 90 mL/min/1.73m2 Mildly decreased* 60 - 89 mL/min/1.73m2 Mildly to moderately decreased 45 - 59 mL/min/1.73m2 Moderately to severely decreased 30 - 44 mL/min/1.73m2 Severely decreased 15 - 29 mL/min/1.73m2 Kidney Failure < 15 mL/min/1.73m2 *Relative to young adult level Estimated glomerular filtration rate is determined by the 2020 CKD-EPI equation recommended by the National Kidney Foundation (A Unifying Approach to GFR Estimation: Recommendations of the NKF-ASK Task Force on Reassessing the Inclusion of Race in Diagnosing Kidney Disease, JASN 2020). The CKD-EPI equation should not be used for patients with unstable renal function and has not been validated in children and those over 70. Current interpretive data was last reviewed 2021. Blood 02/09/2025 7:10 AM CDT 02/09/2025 7:15 AM CDT us Angel Inman MD LAB BLOOD ORDERABLES Final Resu lt [facility] ([place]) 1 [facility] Department [place] [address] * (ABNORMAL) Differential, auto (02/09/2025 7:10 AM CDT) Neutrophil abs 4.36 1.50 - 6.50 K/cumm Imm gran abs 0.02 0.00 - 0.10 K/cumm [facility] ([place]) Lymphocyte abs 4.23(H) 0.80 - 3.30 K/cumm [facility] ([place]) Monocyte abs 0.70 0.20 - 0.80 K/cumm [facility] ([place]) Eosinophil abs 0.46 0.00 - 0.50 K/cumm [facility] ([place]) Basophil abs 0.09 0.00 - 0.10 K/cumm [facility] ([place]) Neutrophil pct 44.2 % [facility] ([place]) Comment: Interpretive Data Percent cell count reference ranges are not reported, since discordance with absolute values may lead to misinterpretation of CBC data. Current Interpretive Data was last revised on 2018. Imm gran pct 0.2 % [facility] ([place]) Comment: Interpretive Data Percent cell count reference ranges are not reported, since discordance with absolute values may lead to misinterpretation of CBC data. Current Interpretive Data was last revised on 2018. Lymphocyte pct 42.9 % [facility] ([place]) Comment: Interpretive Data Percent cell count reference ranges are not reported, since discordance with absolute values may lead to misinterpretation of CBC data. Current Interpretive Data was last revised on 2018. Monocyte pct 7.1 % [facility] ([place]) Comment: Interpretive Data Percent cell count reference ranges are not reported, since discordance with absolute values may lead to misinterpretation of CBC data. Current Interpretive Data was last revised on 2018. Eosinophil pct 4.7 % [facility] ([place]) Comment: Interpretive Data Percent cell count reference ranges are not reported, since discordance with absolute values may lead to misinterpretation of CBC data. Current Interpretive Data was last revised on 2018. Basophil pct 0.9 % [facility] ([place]) Comment: Interpretive Data Percent cell count reference ranges are not reported, since discordance with absolute values may lead to misinterpretation of CBC data. Current Interpretive Data was last revised on 2018. Blood 02/09/2025 7:10 AM CDT 02/09/2025 7:15 AM CDT us Angel Inman MD LAB BLOOD ORDERABLES Final Resu lt [facility] ([place]) 1 [facility] [place] [address] * (ABNORMAL) CBC with auto differential (02/09/2025 7:10 AM CDT) WBC 9.86 3.80 - 9.90 K/cumm Hgb 15.1 11.9 - 15.5 g/dL [facility] ([place]) Hct 46.4(H) 35.6 - 45.5 % [facility] ([place]) Plt 242 150 - 400 K/cumm [facility] ([place]) MPV 9.4 9.1 - 12.3 fL [facility] ([place]) RBC 5.42(H) 3.90 - 5.20 M/cumm [facility] ([place]) MCV 85.6 81.3 - 96.4 fL [facility] ([place]) MCH 27.9 27.1 - 33.3 pg [facility] ([place]) MCHC 32.5 32.3 - 35.7 g/dL [facility] ([place]) RDW CV 12.9 11.1 - 14.9 % [facility] ([place]) RDW SD 40.1 35.7 - 48.1 fL [facility] ([place]) NRBC abs 0.00 0.00 - 0.01 K/cumm [facility] ([place]) Blood 02/09/2025 7:10 AM CDT 02/09/2025 7:15 AM CDT Angel Inman MD LAB BLOOD ORDERABLES Final Resu lt Performing Organization Address City/[facility]/ZIP Co de Phone Number SHANIKA [facility] ([place]) 1 [facility] [place] [employer] [place] [address] * Magnesium (02/09/2025 7:10 AM CDT) Pathologist [facility] Magnesium 2.0 1.4 - 2.5 mg/dL Blood 02/09/2025 7:10 AM CDT 02/09/2025 7:15 AM CDT Angel Inman MD LAB BLOOD ORDERABLES Final Resu lt Performing Organization Address City/[facility] Co de Phone Number [facility] ([place]) 1 [facility] [place] [employer] [place] [address] * Comprehensive metabolic panel (02/09/2025 7:10 AM CDT) Sodium 142 135 - 145 mmol/L Potassium, pl 4.3 3.3 - 4.9 mmol/L [facility] ([place]) Chloride 106 97 - 110 mmol/L [facility] ([place]) CO2 24 22 - 32 mmol/L [facility] ([place]) Anion gap 12 2 - 15 mmol/L [facility] ([place]) BUN 16 6 - 25 mg/dL [facility] ([place]) Creatinine 0.81 0.60 - 1.10 mg/dL [facility] ([place]) Glucose 107 70 - 199 mg/dL [facility] ([place]) Comment: Interpretive Data Fasting glucose >/= 126 mg/dl is diagnostic for diabetes. Fasting is defined as no caloric intake for at least 8 hours. Fasting glucose between 100 mg/dl to 125 mg/dl is diagnostic of prediabetes. In a patient with classic symptoms of hyperglycemia or hyperglycemic crisis, a random glucose >/= 200 mg/dl is diagnostic for diabetes. In the absence of unequivocal hyperglycemia, results should be confirmed by repeat testing. The classification and Diagnosis of Diabetes Diabetes Care 202; 46: S19-S40. Current interpretive data was last revised 2022. Calcium 9.0 8.5 - 10.3 mg/dL [facility] ([place]) Bilirubin, total 0.3 0.1 - 1.2 mg/dL [facility] ([place]) Protein, pl 6.6 6.5 - 8.5 g/dL [facility] ([place]) Albumin 4.2 3.5 - 5.0 g/dL [facility] ([place]) Alk phos 46 40 - 130 Units/L [facility] ([place]) ALT 11 7 - 45 Units/L [facility] ([place]) AST 10 10 - 45 Units/L [facility] ([place]) Blood 02/09/2025 7:10 AM CDT 02/09/2025 7:15 AM CDT us Angel Inman MD LAB BLOOD ORDERABLES Final Resu lt [facility] ([place]) 1 [facility] [place] [address] from Last 3 Months Insurance [facility] Advance Directives For more information, please contact: [phone] * Full Code (Latest Code Status on File) Date Activated Date Inactivated Comments 02/08/2025 3:03 PM 02/10/2025 4:00 PM Care Teams Spike Machine Feeder Relationship Specialty Start Date End Date Hailey Garrido MD 2022 [address] [address] PCP - General Gynecology 01/31/19
--- OUTSIDE RECORDS SUMMARY | 2025-05-11 16:15 | XMS_ITS | Clinical Summary ---
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 Pulse 85 12/11/2021 1:24 PM POWER SYSTEMS ENGINEER Temperature 37.2 C (99 F) 12/11/2021 1:24 PM POWER SYSTEMS ENGINEER Respiratory Rate 16 12/11/2021 1:24 PM POWER SYSTEMS ENGINEER Oxygen Saturation 97% 12/11/2021 1:24 PM POWER SYSTEMS ENGINEER Inhaled Oxygen Concentration - - Weight 86.2 kg (190 lb) 12/11/2021 1:24 PM POWER SYSTEMS ENGINEER Height - - Body Mass Index - - Plan of Treatment Health Maintenance Due Date Last Done Comments Hepatitis C Virus (HCV) Screening 1992 TdaP Immunization 1992 Human Papillomavirus (HPV) Immunization (1 - 3-dose series) 2007 Hepatitis B Immunization (1 of 3 - 19+ 3-dose series) 2011 Pap Smear 2013 Cervical Cancer Screening (CCS) 2022 HPV/Cotest 2022 SARS-COV-2 Immunization ( season) 2024 02/09/2021, 01/20/2021 Influenza Immunization (#1) 2025 08/03/2019 Respiratory Syncytial Virus (RSV) Immunization (Adult) (1 [...] to complete this topic Insurance Care Teams Delivery Nurse Relationship Specialty Start Date End Date Provider, Unknown UNKNOWN PCP - General 12/11/21
--- OUTSIDE RECORDS SUMMARY | 2025-05-11 16:15 | XMS_ITS | Patient Health Record ---
Author Organization [facility] Address [address] [place] [address] Care Team Providers Care Hotel Reservation Agent Name Role Phone Milli Garrison Unavailable [phone] Allergies No Known Allergies Reason For Referral No Information Medications Medication SIG (Take, Route, Frequency, Duration) Notes Start Date End Date Status Sertraline HCl 100 MG 1 tablet Oral Once a day; Duration: 30 days Active Suboxone *Pick strength-f orm from [facility] for eRX* 03/04/2024 Active Lurasidone HCl 60 MG 1 tablet in the evening with food Oral Once a day; Duration: 30 days appointment needed appointment needed Active hydrOXYzine HCl 10 MG 1 tablet as needed Orally twice a day; Duration: 30 days 11/29/2024 Active Immunizations Vaccine Route Administration Date Status Comme nts Influenza, unspecified formulation Unknown 07/03/2023 A dministered Pfizer Biontech Covid-19 Vac cine 2nd dose Unknown 01/20/2021 Administered Pfizer Biontech Covid-19 Vac cine 2nd dose Unknown 02/09/2021 Administered Tdap Unknown 02/01/2024 Administered Social History Sex Assigned At : Social History Observation Description Sex Assigned At Female Problems Problem Type SNOMED Code ICD Code Onset Dates Problem Status W/U Status Risk Notes Problem Opioid dependence (66037282) Opioid dependence, uncomplicated (F11.20) 4 Active confirmed Problem Bipolar affective disorder, currently depressed, mild (927683257) Bipolar disorder, current episode depressed, mild (F31.31) 4 Active confirmed Problem Generalized anxiety disorder (09121032) Generalized anxiety disorder (F41.1) 4 Active confirmed Problem Insomnia disorder related to another mental disorder (12642278) Insomnia due to other mental disorder (F51.05) 4 Active confirmed Problem Tobacco use (157383424) Tobacco use (Z72.0) Active confirmed Problem Long-term current use of drug therapy (571502055) Other long-term (current) drug therapy (Z79.899) 4 Active confirmed Problem Elevated blood-pressure reading without diagnosis of hypertension (939641730) Elevated blood pressure reading (R03.0) Active confirmed Vital Signs Heart Rate 90 /min 11/29/2024 Blood pressure diastolic 83 mm Hg 11/29/2024 Height-cm 160.02 cm 11/29/2024 Weight-kg 93.26 kg 11/29/2024 Height 63.00 in 11/29/2024 Blood pressure systolic 122 mm Hg 11/29/2024 Weight 205.6 lbs 11/29/2024 BMI 36.42 kg/m2 11/29/2024 Encounters Encounter Location Date Provider Diagnosis [facility] [place] [id number] [facility] [address] [place] [address] 05/16/2024 Milli Garrison Bipolar disorder, current episode depressed, mild F31.31 ; Generalized anxiety disorder F41.1 ; Insomnia due to other mental disorder F51.05 ; Opioid dependence, uncomplicated F11.20 and Other long-term (current) drug therapy Z79.899 [facility] [address] [address] 06/30/2024 Milli Garrison [facility] [place] [id number] [facility] [address] [place] [address] 08/25/2024 Milli Garrison Bipolar disorder, current episode depressed, mild F31.31 ; Generalized anxiety disorder F41.1 ; Insomnia due to other mental disorder F51.05 ; Opioid dependence, uncomplicated F11.20 ; Other director long term care (current) drug therapy Z79.899 ; Tobacco use Z72.0 and Elevated blood pressure reading R03.0 [facility] [address] [facility] [address] [place] [address] 10/06/2024 Milli Garrison [facility], [facility] [address] [address] 11/28/2024 Milli Bladimir [facility], [facility] [address] [address] 11/29/2024 Milli Therlianet Bipolar disorder, current episode depressed, mild F31.31 ; Generalized anxiety disorder F41.1 ; Insomnia due to other mental disorder F51.05 ; Opioid dependence, uncomplicated F11.20 ; Other director long term care (current) drug therapy Z79.899 ; Tobacco use Z72.0 and Elevated blood pressure reading R03.0 [facility] [address] [address] 02/27/2025 Milli Garrison [facility] [address] [address] 04/18/2025 Milli Garrison [facility], [facility] [address] [address] 06/06/2024 Milli Bladimir Other long-term (current) drug therapy Z79.899 [facility] [address] [address] 08/24/2024 Milli Bladimir Bipolar disorder, current episode depressed, mild F31.31 [facility] [address] [address] 01/16/2025 Milli Therlianet Bipolar disorder, current episode depressed, mild F31.31 [facility] [address] [address] 02/17/2025 Milli Garrison [facility], [facility] [address] [address] 01/16/2025 Milli Therlianet Bipolar disorder, current episode depressed, mild F31.31 Assessments Encounter Date Diagnosis (ICD Code) Assessment Notes Treatment Notes Treatment Clinical Notes Section Notes 06/06/2024 Other long-term (current) drug therapy (ICD-10 - Z79.899) 11/29/2024 Bipolar disorder, current episode depressed, mild (ICD-10 - F31.31) Bipolar Disorder: Care Instructions material was published, Learning About How to Get Help During a Mental Health Crisis material was published, Learning About Movement Disorders From Antipsychotic Medicines material was published, Learning About Mood Disorders material was published, Bipolar Disorder: Care Instructions material was published, Learning About Mood Disorders material was published, Learning About Movement Disorders From Antipsychotic Medicines material was published, Learning About How to Get Help During a Mental Health Crisis material was published 1. Bipolar I disorder - improved Latuda 60 mg with evening meal eat 350 calories - for bipolar depression educated on rx educated on rx not on BC- educated on Depakote and - patient has PCOS Risk- Depakote can cause major congenital malformations incl. neural tube defects, decr. IQ scores, neurodevelopmental disorders after in utero exposure; contraindicated for migraine prophylaxis use in and women of reproductive potential w/o effective contraception; should not be used for epilepsy or bipolar disorder use in and women planning to become unless other tx options have failed or are unacceptable; women should use effective contraception during tx AIMS = 0 03/04/24 Second generation antipsychotics (SGAs) have metabolic syndrome issues with weight gain, increase in prolactin, increased waist circumference, increased lipids, and increased glucose. Thus routine monitoring of weight, metabolic labs, etc. is indicated. A general rank ordering of antipsychotics that have the greatest to the least risk of metabolic effects is olanzapine, quetiapine, risperidone, ziprasidone, and aripiprazole. However, weight gain can occur with all of these drugs and considerable variability exists among patients receiving the same drug regarding the risk of metabolic effects. Anti-psychotic agents not only increase the risk of metabolic disorder, they also increase the risk of CVA, akathisia, and movement disorders including EPS or tardive dyskinesia (more common with first generation antipsychotics) and more Depakote 125 MG AT NIGHT - patient reported not taking rx and never filled rx 2. Generalized anxiety disorder - patient having increase anxiety discuss and education on all rx will add Vistaril 10 mg twice a day as needed Zoloft 100 mg daily at night - educated on rx Medication Management and Follow-Up - Plan: - Schedule follow-up appointments every 2-3 months to monitor the patient's response to the medication regimen. - Reinforce the importance of avoiding recreational drug use due to potential neurotoxicity and interactions with prescribed medications. educated on all medications, benefits, side effects and risk, and educated on depression, anxiety, and ADHD, mood d/o and educated on compliance of medications, metabolic and movement d/o education appointment is, continue therapy discussion with patient about course of treatment and patient instructions. education on serotonin syndrome SSRI/SNRI side effects discussed including but not limited to, gastric upset, nausea, vomiting, diarrhea and/or constipation, weight changes, sexual side effects including loss of libido, increased suicidal thoughts/behaviors in children and young adults, and serotonin syndrome. 3. 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 Tobacco user Do not smoke. Nicotine and other chemicals in cigarettes and cigars can cause lung damage. Ask your healthcare provider for information if you currently smoke and need help to quit. E-cigarettes or smokeless tobacco still contain nicotine. Talk to your healthcare provider before you use these products. education on decrease to stopping nicotine products and stop smoking hotline given -Quit - Yes [place] Tobacco Quitline Call a Smoking Quitline The [employer] [place]'s Smoking Quitline, (4-676-33N-QUIT) Smokefree.gov, which connects you with your State's Quitline, (4-273-XNCJIUD) [facility] Smoking Quitline, (7-450-GYGMCRW) 6.elevated blood pressure reading educated on healthy b/p 120/80 monitor b/p at home refer to PCP, Urgent care/ER heart healthy diet and excise limit salt intake limit soda intake and caffiene increase water 7. Long-term drug therapy Discussion Notes continue therapy obtain labs PCP educated on Depakote and risk- patient not taking rx educated to take Folic acid- pre vitamin or suplement OTC Patient verbalize understanding 01/16/2025 Bipolar disorder, current episode depressed, mild (ICD-10 - F31.31) 01/16/2025 Bipolar disorder, current episode depressed, mild (ICD-10 - F31.31) 05/16/2024 Bipolar disorder, current episode depressed, mild (ICD-10 - F31.31) Bipolar Disorder: Care Instructions material was published, Learning About How to Get Help During a Mental Health Crisis material was published, Learning About Movement Disorders From Antipsychotic Medicines material was published, Learning About Mood Disorders material was published 1. Bipolar I disorder -Latuda 40 mg with evening meal eat 350 calories - educated on rx Add Depakote ER 125 MG AT NIGHT educated on rx not on BC- educated on Depakote and - patient has PCOS Risk- Depakote can cause major congenital malformations incl. neural tube defects, decr. IQ scores, neurodevelopmental disorders after in utero exposure; contraindicated for migraine prophylaxis use in and women of reproductive potential w/o effective contraception; should not be used for epilepsy or bipolar disorder use in and women planning to become unless other tx options have failed or are unacceptable; women should use effective contraception during tx AIMS = 0 03/04/24 Second generation antipsychotics (SGAs) have metabolic syndrome issues with weight gain, increase in prolactin, increased waist circumference, increased lipids, and increased glucose. Thus routine monitoring of weight, metabolic labs, etc. is indicated. A general rank ordering of antipsychotics that have the greatest to the least risk of metabolic effects is olanzapine, quetiapine, risperidone, ziprasidone, and aripiprazole. However, weight gain can occur with all of these drugs and considerable variability exists among patients receiving the same drug regarding the risk of metabolic effects. Anti-psychotic agents not only increase the risk of metabolic disorder, they also increase the risk of CVA, akathisia, and movement disorders including EPS or tardive dyskinesia (more common with first generation antipsychotics) and more F31.31: Bipolar disorder, current episode depressed, mild lurasidone 40 mg tablet - Take 1 tablet(s) every day by oral route at dinner for 90 days. Qty: (90) tablet Refills: 0 Pharmacy: [facility] #[id number] Depakote 125 MG AT NIGHT WILL TITRATE NEEDED - hari 2. Generalized anxiety disorder - Zoloft 100 mg daily at night - educated on rx Medication Management and Follow-Up - Plan: - Schedule follow-up appointments every 2-3 months to monitor the patient's response to the medication regimen. - Reinforce the importance of avoiding recreational drug use due to potential neurotoxicity and interactions with prescribed medications. educated on all medications, benefits, side effects and risk, and educated on depression, anxiety, and ADHD, mood d/o and educated on compliance of medications, metabolic and movement d/o education appointment is, continue therapy discussion with patient about course of treatment and patient instructions. education on serotonin syndrome SSRI/SNRI side effects discussed including but not limited to, gastric upset, nausea, vomiting, diarrhea and/or constipation, weight changes, sexual side effects including loss of libido, increased suicidal thoughts/behaviors in children and young adults, and serotonin syndrome. F41.1: Generalized anxiety disorder sertraline 100 mg tablet - Take 1 tablet(s) every day by oral route in the evening for 90 days. Qty: (90) tablet Refills: 0 Pharmacy: [id number] #[id number] 3. 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 Tobacco user Z72.0: Tobacco use 6. Long-term drug therapy Z79.899: Other long-term (current) drug therapy Discussion Notes continue therapy obtain labs PCP educated on Depakote and risk educated to take Folic acid- pre alice vitamin or suplement OTC Patient verbalize understanding 05/16/2024 Generalized anxiety disorder (ICD-10 - F41.1) Learning About Generalized Anxiety Disorder material was published, Generalized Anxiety Disorder: Care Instructions material was published, Learning About Anxiety Disorders material was published 1. Bipolar I disorder -Latuda 40 mg with evening meal eat 350 calories - educated on rx Add Depakote ER 125 MG AT NIGHT educated on rx not on BC- educated on Depakote and - patient has PCOS Risk- Depakote can cause major congenital malformations incl. neural tube defects, decr. IQ scores, neurodevelopmental disorders after in utero exposure; contraindicated for migraine prophylaxis use in and women of reproductive potential w/o effective contraception; should not be used for epilepsy or bipolar disorder use in and women planning to become unless other tx options have failed or are unacceptable; women should use effective contraception during tx AIMS = 0 03/04/24 Second generation antipsychotics (SGAs) have metabolic syndrome issues with weight gain, increase in prolactin, increased waist circumference, increased lipids, and increased glucose. Thus routine monitoring of weight, metabolic labs, etc. is indicated. A general rank ordering of antipsychotics that have the greatest to the least risk of metabolic effects is olanzapine, quetiapine, risperidone, ziprasidone, and aripiprazole. However, weight gain can occur with all of these drugs and considerable variability exists among patients receiving the same drug regarding the risk of metabolic effects. Anti-psychotic agents not only increase the risk of metabolic disorder, they also increase the risk of CVA, akathisia, and movement disorders including EPS or tardive dyskinesia (more common with first generation antipsychotics) and more F31.31: Bipolar disorder, current episode depressed, mild lurasidone 40 mg tablet - Take 1 tablet(s) every day by oral route at dinner for 90 days. Qty: (90) tablet Refills: 0 Pharmacy: [id number] #[id number] Depakote 125 MG AT NIGHT WILL TITRATE NEEDED - hari 2. Generalized anxiety disorder - Zoloft 100 mg daily at night - educated on rx Medication Management and Follow-Up - Plan: - Schedule follow-up appointments every 2-3 months to monitor the patient's response to the medication regimen. - Reinforce the importance of avoiding recreational drug use due to potential neurotoxicity and interactions with prescribed medications. educated on all medications, benefits, side effects and risk, and educated on depression, anxiety, and ADHD, mood d/o and educated on compliance of medications, metabolic and movement d/o education appointment is, continue therapy discussion with patient about course of treatment and patient instructions. education on serotonin syndrome SSRI/SNRI side effects discussed including but not limited to, gastric upset, nausea, vomiting, diarrhea and/or constipation, weight changes, sexual side effects including loss of libido, increased suicidal thoughts/behaviors in children and young adults, and serotonin syndrome. F41.1: Generalized anxiety disorder sertraline 100 mg tablet - Take 1 tablet(s) every day by oral route in the evening for 90 days. Qty: (90) tablet Refills: 0 Pharmacy: [id number] #[id number] 3. Opioid dependence -Suboxone 8/2 mg daily PRN prescribed by addiction clinic online less 1 year NOT PRESCRIBED BY [facility] F11.20: Opioid dependence, uncomplicated 4. 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 Tobacco user Z72.0: Tobacco use 6. Long-term drug therapy Z79.899: Other director long term care (current) drug therapy Discussion Notes continue therapy obtain labs PCP educated on Depakote and risk educated to take Folic acid- pre alice vitamin or suplement OTC Patient verbalize understanding 08/25/2024 Bipolar disorder, current episode depressed, mild (ICD-10 - F31.31) Bipolar Disorder: Care Instructions material was published, Learning About How to Get Help During a Mental Health Crisis material was published, Learning About Movement Disorders From Antipsychotic Medicines material was published, Learning About Mood Disorders material was published, Bipolar Disorder: Care Instructions material was published, Learning About Mood Disorders material was published, Learning About Movement Disorders From Antipsychotic Medicines material was published, Learning About How to Get Help During a Mental Health Crisis material was published 1. Bipolar I disorder - increase Latuda 60 mg with evening meal eat 350 calories - for bipolar depression educated on rx educated on rx not on BC- educated on Depakote and - patient has PCOS Risk- Depakote can cause major congenital malformations incl. neural tube defects, decr. IQ scores, neurodevelopmental disorders after in utero exposure; contraindicated for migraine prophylaxis use in and women of reproductive potential w/o effective contraception; should not be used for epilepsy or bipolar disorder use in and women planning to become unless other tx options have failed or are unacceptable; women should use effective contraception during tx AIMS = 0 03/04/24 Second generation antipsychotics (SGAs) have metabolic syndrome issues with weight gain, increase in prolactin, increased waist circumference, increased lipids, and increased glucose. Thus routine monitoring of weight, metabolic labs, etc. is indicated. A general rank ordering of antipsychotics that have the greatest to the least risk of metabolic effects is olanzapine, quetiapine, risperidone, ziprasidone, and aripiprazole. However, weight gain can occur with all of these drugs and considerable variability exists among patients receiving the same drug regarding the risk of metabolic effects. Anti-psychotic agents not only increase the risk of metabolic disorder, they also increase the risk of CVA, akathisia, and movement disorders including EPS or tardive dyskinesia (more common with first generation antipsychotics) and more Depakote 125 MG AT NIGHT - patient reported not taking rx and never filled rx 2. Generalized anxiety disorder - Zoloft 100 mg daily at night - educated on rx Medication Management and Follow-Up - Plan: - Schedule follow-up appointments every 2-3 months to monitor the patient's response to the medication regimen. - Reinforce the importance of avoiding recreational drug use due to potential neurotoxicity and interactions with prescribed medications. educated on all medications, benefits, side effects and risk, and educated on depression, anxiety, and ADHD, mood d/o and educated on compliance of medications, metabolic and movement d/o education appointment is, continue therapy discussion with patient about course of treatment and patient instructions. education on serotonin syndrome SSRI/SNRI side effects discussed including but not limited to, gastric upset, nausea, vomiting, diarrhea and/or constipation, weight changes, sexual side effects including loss of libido, increased suicidal thoughts/behaviors in children and young adults, and serotonin syndrome. 3. 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 Tobacco user 6. Long-term drug therapy Discussion Notes continue therapy obtain labs PCP educated on Depakote and risk- patient not taking rx educated to take Folic acid- pre alice vitamin or suplement OTC Patient verbalize understanding 08/25/2024 Generalized anxiety disorder (ICD-10 - F41.1) Learning About Generalized Anxiety Disorder material was published, Generalized Anxiety Disorder: Care Instructions material was published, Learning About Anxiety Disorders material was published, Learning About Generalized Anxiety Disorder material was published, Generalized Anxiety Disorder: Care Instructions material was published, Learning About Anxiety Disorders material was published 1. Bipolar I disorder - increase Latuda 60 mg with evening meal eat 350 calories - for bipolar depression educated on rx educated on rx not on BC- educated on Depakote and - patient has PCOS Risk- Depakote can cause major congenital malformations incl. neural tube defects, decr. IQ scores, neurodevelopmental disorders after in utero exposure; contraindicated for migraine prophylaxis use in and women of reproductive potential w/o effective contraception; should not be used for epilepsy or bipolar disorder use in and women planning to become unless other tx options have failed or are unacceptable; women should use effective contraception during tx AIMS = 0 03/04/24 Second generation antipsychotics (SGAs) have metabolic syndrome issues with weight gain, increase in prolactin, increased waist circumference, increased lipids, and increased glucose. Thus routine monitoring of weight, metabolic labs, etc. is indicated. A general rank ordering of antipsychotics that have the greatest to the least risk of metabolic effects is olanzapine, quetiapine, risperidone, ziprasidone, and aripiprazole. However, weight gain can occur with all of these drugs and considerable variability exists among patients receiving the same drug regarding the risk of metabolic effects. Anti-psychotic agents not only increase the risk of metabolic disorder, they also increase the risk of CVA, akathisia, and movement disorders including EPS or tardive dyskinesia (more common with first generation antipsychotics) and more Depakote 125 MG AT NIGHT - patient reported not taking rx and never filled rx 2. Generalized anxiety disorder - Zoloft 100 mg daily at night - educated on rx Medication Management and Follow-Up - Plan: - Schedule follow-up appointments every 2-3 months to monitor the patient's response to the medication regimen. - Reinforce the importance of avoiding recreational drug use due to potential neurotoxicity and interactions with prescribed medications. educated on all medications, benefits, side effects and risk, and educated on depression, anxiety, and ADHD, mood d/o and educated on compliance of medications, metabolic and movement d/o education appointment is, continue therapy discussion with patient about course of treatment and patient instructions. education on serotonin syndrome SSRI/SNRI side effects discussed including but not limited to, gastric upset, nausea, vomiting, diarrhea and/or constipation, weight changes, sexual side effects including loss of libido, increased suicidal thoughts/behaviors in children and young adults, and serotonin syndrome. 3. 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 Tobacco user 6. Long-term drug therapy Discussion Notes continue therapy obtain labs PCP educated on Depakote and risk- patient not taking rx educated to take Folic acid- pre alice vitamin or suplement OTC Patient verbalize understanding 08/24/2024 Bipolar disorder, current episode depressed, mild (ICD-10 - F31.31) 08/25/2024 Insomnia due to other mental disorder (ICD-10 - F51.05) 1. Bipolar I disorder - increase Latuda 60 mg with evening meal eat 350 calories - for bipolar depression educated on rx educated on rx not on BC- educated on Depakote and - patient has PCOS Risk- Depakote can cause major congenital malformations incl. neural tube defects, decr. IQ scores, neurodevelopmental disorders after in utero exposure; contraindicated for migraine prophylaxis use in and women of reproductive potential w/o effective contraception; should not be used for epilepsy or bipolar disorder use in and women planning to become unless other tx options have failed or are unacceptable; women should use effective contraception during tx AIMS = 0 03/04/24 Second generation antipsychotics (SGAs) have metabolic syndrome issues with weight gain, increase in prolactin, increased waist circumference, increased lipids, and increased glucose. Thus routine monitoring of weight, metabolic labs, etc. is indicated. A general rank ordering of antipsychotics that have the greatest to the least risk of metabolic effects is olanzapine, quetiapine, risperidone, ziprasidone, and aripiprazole. However, weight gain can occur with all of these drugs and considerable variability exists among patients receiving the same drug regarding the risk of metabolic effects. Anti-psychotic agents not only increase the risk of metabolic disorder, they also increase the risk of CVA, akathisia, and movement disorders including EPS or tardive dyskinesia (more common with first generation antipsychotics) and more Depakote 125 MG AT NIGHT - patient reported not taking rx and never filled rx 2. Generalized anxiety disorder - Zoloft 100 mg daily at night - educated on rx Medication Management and Follow-Up - Plan: - Schedule follow-up appointments every 2-3 months to monitor the patient's response to the medication regimen. - Reinforce the importance of avoiding recreational drug use due to potential neurotoxicity and interactions with prescribed medications. educated on all medications, benefits, side effects and risk, and educated on depression, anxiety, and ADHD, mood d/o and educated on compliance of medications, metabolic and movement d/o education appointment is, continue therapy discussion with patient about course of treatment and patient instructions. education on serotonin syndrome SSRI/SNRI side effects discussed including but not limited to, gastric upset, nausea, vomiting, diarrhea and/or constipation, weight changes, sexual side effects including loss of libido, increased suicidal thoughts/behaviors in children and young adults, and serotonin syndrome. 3. 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 Tobacco user 6. Long-term drug therapy Discussion Notes continue therapy obtain labs PCP educated on Depakote and risk- patient not taking rx educated to take Folic acid- pre alice vitamin or suplement OTC Patient verbalize understanding 05/16/2024 Insomnia due to other mental disorder (ICD-10 - F51.05) 1. Bipolar I disorder -Latuda 40 mg with evening meal eat 350 calories - educated on rx Add Depakote ER 125 MG AT NIGHT educated on rx not on BC- educated on Depakote and - patient has PCOS Risk- Depakote can cause major congenital malformations incl. neural tube defects, decr. IQ scores, neurodevelopmental disorders after in utero exposure; contraindicated for migraine prophylaxis use in and women of reproductive potential w/o effective contraception; should not be used for epilepsy or bipolar disorder use in and women planning to become unless other tx options have failed or are unacceptable; women should use effective contraception during tx AIMS = 0 03/04/24 Second generation antipsychotics (SGAs) have metabolic syndrome issues with weight gain, increase in prolactin, increased waist circumference, increased lipids, and increased glucose. Thus routine monitoring of weight, metabolic labs, etc. is indicated. A general rank ordering of antipsychotics that have the greatest to the least risk of metabolic effects is olanzapine, quetiapine, risperidone, ziprasidone, and aripiprazole. However, weight gain can occur with all of these drugs and considerable variability exists among patients receiving the same drug regarding the risk of metabolic effects. Anti-psychotic agents not only increase the risk of metabolic disorder, they also increase the risk of CVA, akathisia, and movement disorders including EPS or tardive dyskinesia (more common with first generation antipsychotics) and more F31.31: Bipolar disorder, current episode depressed, mild lurasidone 40 mg tablet - Take 1 tablet(s) every day by oral route at dinner for 90 days. Qty: (90) tablet Refills: 0 Pharmacy: [facility] #[id number] Depakote 125 MG AT NIGHT WILL TITRATE NEEDED - hari 2. Generalized anxiety disorder - Zoloft 100 mg daily at night - educated on rx Medication Management and Follow-Up - Plan: - Schedule follow-up appointments every 2-3 months to monitor the patient's response to the medication regimen. - Reinforce the importance of avoiding recreational drug use due to potential neurotoxicity and interactions with prescribed medications. educated on all medications, benefits, side effects and risk, and educated on depression, anxiety, and ADHD, mood d/o and educated on compliance of medications, metabolic and movement d/o education appointment is, continue therapy discussion with patient about course of treatment and patient instructions. education on serotonin syndrome SSRI/SNRI side effects discussed including but not limited to, gastric upset, nausea, vomiting, diarrhea and/or constipation, weight changes, sexual side effects including loss of libido, increased suicidal thoughts/behaviors in children and young adults, and serotonin syndrome. F41.1: Generalized anxiety disorder sertraline 100 mg tablet - Take 1 tablet(s) every day by oral route in the evening for 90 days. Qty: (90) tablet Refills: 0 Pharmacy: [facility] #[id number] 3. 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 Tobacco user Z72.0: Tobacco use 6. Long-term drug therapy Z79.899: Other long-term (current) drug therapy Discussion Notes continue therapy obtain labs PCP educated on Depakote and risk educated to take Folic acid- pre vitamin or suplement OTC Patient verbalize understanding 11/29/2024 Generalized anxiety disorder (ICD-10 - F41.1) Learning About Generalized Anxiety Disorder material was published, Generalized Anxiety Disorder: Care Instructions material was published, Learning About Anxiety Disorders material was published, Learning About Generalized Anxiety Disorder material was published, Generalized Anxiety Disorder: Care Instructions material was published, Learning About Anxiety Disorders material was published 1. Bipolar I disorder - improved Latuda 60 mg with evening meal eat 350 calories - for bipolar depression educated on rx educated on rx not on BC- educated on Depakote and - patient has PCOS Risk- Depakote can cause major congenital malformations incl. neural tube defects, decr. IQ scores, neurodevelopmental disorders after in utero exposure; contraindicated for migraine prophylaxis use in and women of reproductive potential w/o effective contraception; should not be used for epilepsy or bipolar disorder use in and women planning to become unless other tx options have failed or are unacceptable; women should use effective contraception during tx AIMS = 0 03/04/24 Second generation antipsychotics (SGAs) have metabolic syndrome issues with weight gain, increase in prolactin, increased waist circumference, increased lipids, and increased glucose. Thus routine monitoring of weight, metabolic labs, etc. is indicated. A general rank ordering of antipsychotics that have the greatest to the least risk of metabolic effects is olanzapine, quetiapine, risperidone, ziprasidone, and aripiprazole. However, weight gain can occur with all of these drugs and considerable variability exists among patients receiving the same drug regarding the risk of metabolic effects. Anti-psychotic agents not only increase the risk of metabolic disorder, they also increase the risk of CVA, akathisia, and movement disorders including EPS or tardive dyskinesia (more common with first generation antipsychotics) and more Depakote 125 MG AT NIGHT - patient reported not taking rx and never filled rx 2. Generalized anxiety disorder - patient having increase anxiety discuss and education on all rx will add Vistaril 10 mg twice a day as needed Zoloft 100 mg daily at night - educated on rx Medication Management and Follow-Up - Plan: - Schedule follow-up appointments every 2-3 months to monitor the patient's response to the medication regimen. - Reinforce the importance of avoiding recreational drug use due to potential neurotoxicity and interactions with prescribed medications. educated on all medications, benefits, side effects and risk, and educated on depression, anxiety, and ADHD, mood d/o and educated on compliance of medications, metabolic and movement d/o education appointment is, continue therapy discussion with patient about course of treatment and patient instructions. education on serotonin syndrome SSRI/SNRI side effects discussed including but not limited to, gastric upset, nausea, vomiting, diarrhea and/or constipation, weight changes, sexual side effects including loss of libido, increased suicidal thoughts/behaviors in children and young adults, and serotonin syndrome. 3. 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 Tobacco user Do not smoke. Nicotine and other chemicals in cigarettes and cigars can cause lung damage. Ask your healthcare provider for information if you currently smoke and need help to quit. E-cigarettes or smokeless tobacco still contain nicotine. Talk to your healthcare provider before you use these products. education on decrease to stopping nicotine products and stop smoking hotline given Quit - Yes [place] Tobacco Quitline Call a Smoking Quitline [employer] Smoking Quitline, (7-056-86L-QUIT) Smokefree.gov, which connects you with your State's Quitline, (8-576-LGRPFGO) [facility] Smoking Quitline, (3-521-CFYITZD) 6.elevated blood pressure reading educated on healthy b/p 120/80 monitor b/p at home refer to PCP, Urgent care/ER heart healthy diet and excise limit salt intake limit soda intake and caffiene increase water 7. Long-term drug therapy Discussion Notes continue therapy obtain labs PCP educated on Depakote and risk- patient not taking rx educated to take Folic acid- pre vitamin or suplement OTC Patient verbalize understanding 11/29/2024 Insomnia due to other mental disorder (ICD-10 - F51.05) 1. Bipolar I disorder - improved Latuda 60 mg with evening meal eat 350 calories - for bipolar depression educated on rx educated on rx not on BC- educated on Depakote and - patient has PCOS Risk- Depakote can cause major congenital malformations incl. neural tube defects, decr. IQ scores, neurodevelopmental disorders after in utero exposure; contraindicated for migraine prophylaxis use in and women of reproductive potential w/o effective contraception; should not be used for epilepsy or bipolar disorder use in and women planning to become unless other tx options have failed or are unacceptable; women should use effective contraception during tx AIMS = 0 03/04/24 Second generation antipsychotics (SGAs) have metabolic syndrome issues with weight gain, increase in prolactin, increased waist circumference, increased lipids, and increased glucose. Thus routine monitoring of weight, metabolic labs, etc. is indicated. A general rank ordering of antipsychotics that have the greatest to the least risk of metabolic effects is olanzapine, quetiapine, risperidone, ziprasidone, and aripiprazole. However, weight gain can occur with all of these drugs and considerable variability exists among patients receiving the same drug regarding the risk of metabolic effects. Anti-psychotic agents not only increase the risk of metabolic disorder, they also increase the risk of CVA, akathisia, and movement disorders including EPS or tardive dyskinesia (more common with first generation antipsychotics) and more Depakote 125 MG AT NIGHT - patient reported not taking rx and never filled rx 2. Generalized anxiety disorder - patient having increase anxiety discuss and education on all rx will add Vistaril 10 mg twice a day as needed Zoloft 100 mg daily at night - educated on rx Medication Management and Follow-Up - Plan: - Schedule follow-up appointments every 2-3 months to monitor the patient's response to the medication regimen. - Reinforce the importance of avoiding recreational drug use due to potential neurotoxicity and interactions with prescribed medications. educated on all medications, benefits, side effects and risk, and educated on depression, anxiety, and ADHD, mood d/o and educated on compliance of medications, metabolic and movement d/o education appointment is, continue therapy discussion with patient about course of treatment and patient instructions. education on serotonin syndrome SSRI/SNRI side effects discussed including but not limited to, gastric upset, nausea, vomiting, diarrhea and/or constipation, weight changes, sexual side effects including loss of libido, increased suicidal thoughts/behaviors in children and young adults, and serotonin syndrome. 3. 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 Tobacco user Do not smoke. Nicotine and other chemicals in cigarettes and cigars can cause lung damage. Ask your healthcare provider for information if you currently smoke and need help to quit. E-cigarettes or smokeless tobacco still contain nicotine. Talk to your healthcare provider before you use these products. education on decrease to stopping nicotine products and stop smoking hotline given 492-Quit - Yes [place] Tobacco Quitline Call a Smoking Quitline [employer] Smoking Quitline, (8-382-62J-QUIT) Smokefree.gov, which connects you with your State's Quitline, (4-309-EWWXVFB) [facility] Smoking Quitline, (9-503-VOUXBFZ) 6.elevated blood pressure reading educated on healthy b/p 120/80 monitor b/p at home refer to PCP, Urgent care/ER heart healthy diet and excise limit salt intake limit soda intake and caffiene increase water 7. Long-term drug therapy Discussion Notes continue therapy obtain labs PCP educated on Depakote and risk- patient not taking rx educated to take Folic acid- pre alice vitamin or suplement OTC Patient verbalize understanding 05/16/2024 Opioid dependence, uncomplicated (ICD-10 - F11.20) Learning About Pain Control When You Have a History of Opioid Use Disorder material was published, Learning About Opioid Use Disorder material was published, Learning About Substance Use Disorder material was published 1. Bipolar I disorder -Latuda 40 mg with evening meal eat 350 calories - educated on rx Add Depakote ER 125 MG AT NIGHT educated on rx not on BC- educated on Depakote and - patient has PCOS Risk- Depakote can cause major congenital malformations incl. neural tube defects, decr. IQ scores, neurodevelopmental disorders after in utero exposure; contraindicated for migraine prophylaxis use in and women of reproductive potential w/o effective contraception; should not be used for epilepsy or bipolar disorder use in and women planning to become unless other tx options have failed or are unacceptable; women should use effective contraception during tx AIMS = 0 03/04/24 Second generation antipsychotics (SGAs) have metabolic syndrome issues with weight gain, increase in prolactin, increased waist circumference, increased lipids, and increased glucose. Thus routine monitoring of weight, metabolic labs, etc. is indicated. A general rank ordering of antipsychotics that have the greatest to the least risk of metabolic effects is olanzapine, quetiapine, risperidone, ziprasidone, and aripiprazole. However, weight gain can occur with all of these drugs and considerable variability exists among patients receiving the same drug regarding the risk of metabolic effects. Anti-psychotic agents not only increase the risk of metabolic disorder, they also increase the risk of CVA, akathisia, and movement disorders including EPS or tardive dyskinesia (more common with first generation antipsychotics) and more F31.31: Bipolar disorder, current episode depressed, mild lurasidone 40 mg tablet - Take 1 tablet(s) every day by oral route at dinner for 90 days. Qty: (90) tablet Refills: 0 Pharmacy: [facility] #[id number] Depakote 125 MG AT NIGHT WILL TITRATE NEEDED - hari 2. Generalized anxiety disorder - Zoloft 100 mg daily at night - educated on rx Medication Management and Follow-Up - Plan: - Schedule follow-up appointments every 2-3 months to monitor the patient's response to the medication regimen. - Reinforce the importance of avoiding recreational drug use due to potential neurotoxicity and interactions with prescribed medications. educated on all medications, benefits, side effects and risk, and educated on depression, anxiety, and ADHD, mood d/o and educated on compliance of medications, metabolic and movement d/o education appointment is, continue therapy discussion with patient about course of treatment and patient instructions. education on serotonin syndrome SSRI/SNRI side effects discussed including but not limited to, gastric upset, nausea, vomiting, diarrhea and/or constipation, weight changes, sexual side effects including loss of libido, increased suicidal thoughts/behaviors in children and young adults, and serotonin syndrome. F41.1: Generalized anxiety disorder sertraline 100 mg tablet - Take 1 tablet(s) every day by oral route in the evening for 90 days. Qty: (90) tablet Refills: 0 Pharmacy: [id number] #[id number] 3. 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 Tobacco user Z72.0: Tobacco use 6. Long-term drug therapy Z79.899: Other long-term (current) drug therapy Discussion Notes continue therapy obtain labs PCP educated on Depakote and risk educated to take Folic acid- pre alice vitamin or suplement OTC Patient verbalize understanding 08/25/2024 Opioid dependence, uncomplicated (ICD-10 - F11.20) Learning About Pain Control When You Have a History of Opioid Use Disorder material was published, Learning About Opioid Use Disorder material was published, Learning About Substance Use Disorder material was published, Learning About Opioid Use Disorder material was published 1. Bipolar I disorder - increase Latuda 60 mg with evening meal eat 350 calories - for bipolar depression educated on rx educated on rx not on BC- educated on Depakote and - patient has PCOS Risk- Depakote can cause major congenital malformations incl. neural tube defects, decr. IQ scores, neurodevelopmental disorders after in utero exposure; contraindicated for migraine prophylaxis use in and women of reproductive potential w/o effective contraception; should not be used for epilepsy or bipolar disorder use in and women planning to become unless other tx options have failed or are unacceptable; women should use effective contraception during tx AIMS = 0 03/04/24 Second generation antipsychotics (SGAs) have metabolic syndrome issues with weight gain, increase in prolactin, increased waist circumference, increased lipids, and increased glucose. Thus routine monitoring of weight, metabolic labs, etc. is indicated. A general rank ordering of antipsychotics that have the greatest to the least risk of metabolic effects is olanzapine, quetiapine, risperidone, ziprasidone, and aripiprazole. However, weight gain can occur with all of these drugs and considerable variability exists among patients receiving the same drug regarding the risk of metabolic effects. Anti-psychotic agents not only increase the risk of metabolic disorder, they also increase the risk of CVA, akathisia, and movement disorders including EPS or tardive dyskinesia (more common with first generation antipsychotics) and more Depakote 125 MG AT NIGHT - patient reported not taking rx and never filled rx 2. Generalized anxiety disorder - Zoloft 100 mg daily at night - educated on rx Medication Management and Follow-Up - Plan: - Schedule follow-up appointments every 2-3 months to monitor the patient's response to the medication regimen. - Reinforce the importance of avoiding recreational drug use due to potential neurotoxicity and interactions with prescribed medications. educated on all medications, benefits, side effects and risk, and educated on depression, anxiety, and ADHD, mood d/o and educated on compliance of medications, metabolic and movement d/o education appointment is, continue therapy discussion with patient about course of treatment and patient instructions. education on serotonin syndrome SSRI/SNRI side effects discussed including but not limited to, gastric upset, nausea, vomiting, diarrhea and/or constipation, weight changes, sexual side effects including loss of libido, increased suicidal thoughts/behaviors in children and young adults, and serotonin syndrome. 3. 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 Tobacco user 6. Long-term drug therapy Discussion Notes continue therapy obtain labs PCP educated on Depakote and risk- patient not taking rx educated to take Folic acid- pre vitamin or suplement OTC Patient verbalize understanding 08/25/2024 Other long-term (current) drug therapy (ICD-10 - Z79.899) Medication Refill: Care Instructions material was published, Medication Refill: Care Instructions material was published 1. Bipolar I disorder - increase Latuda 60 mg with evening meal eat 350 calories - for bipolar depression educated on rx educated on rx not on BC- educated on Depakote and - patient has PCOS Risk- Depakote can cause major congenital malformations incl. neural tube defects, decr. IQ scores, neurodevelopmental disorders after in utero exposure; contraindicated for migraine prophylaxis use in and women of reproductive potential w/o effective contraception; should not be used for epilepsy or bipolar disorder use in and women planning to become unless other tx options have failed or are unacceptable; women should use effective contraception during tx AIMS = 0 03/04/24 Second generation antipsychotics (SGAs) have metabolic syndrome issues with weight gain, increase in prolactin, increased waist circumference, increased lipids, and increased glucose. Thus routine monitoring of weight, metabolic labs, etc. is indicated. A general rank ordering of antipsychotics that have the greatest to the least risk of metabolic effects is olanzapine, quetiapine, risperidone, ziprasidone, and aripiprazole. However, weight gain can occur with all of these drugs and considerable variability exists among patients receiving the same drug regarding the risk of metabolic effects. Anti-psychotic agents not only increase the risk of metabolic disorder, they also increase the risk of CVA, akathisia, and movement disorders including EPS or tardive dyskinesia (more common with first generation antipsychotics) and more Depakote 125 MG AT NIGHT - patient reported not taking rx and never filled rx 2. Generalized anxiety disorder - Zoloft 100 mg daily at night - educated on rx Medication Management and Follow-Up - Plan: - Schedule follow-up appointments every 2-3 months to monitor the patient's response to the medication regimen. - Reinforce the importance of avoiding recreational drug use due to potential neurotoxicity and interactions with prescribed medications. educated on all medications, benefits, side effects and risk, and educated on depression, anxiety, and ADHD, mood d/o and educated on compliance of medications, metabolic and movement d/o education appointment is, continue therapy discussion with patient about course of treatment and patient instructions. education on serotonin syndrome SSRI/SNRI side effects discussed including but not limited to, gastric upset, nausea, vomiting, diarrhea and/or constipation, weight changes, sexual side effects including loss of libido, increased suicidal thoughts/behaviors in children and young adults, and serotonin syndrome. 3. 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 Tobacco user 6. Long-term drug therapy Discussion Notes continue therapy obtain labs PCP educated on Depakote and risk- patient not taking rx educated to take Folic acid- pre alice vitamin or suplement OTC Patient verbalize understanding 05/16/2024 Other long-term (current) drug therapy (ICD-10 - Z79.899) Medication Refill: Care Instructions material was published 1. Bipolar I disorder -Latuda 40 mg with evening meal eat 350 calories - educated on rx Add Depakote ER 125 MG AT NIGHT educated on rx not on BC- educated on Depakote and - patient has PCOS Risk- Depakote can cause major congenital malformations incl. neural tube defects, decr. IQ scores, neurodevelopmental disorders after in utero exposure; contraindicated for migraine prophylaxis use in and women of reproductive potential w/o effective contraception; should not be used for epilepsy or bipolar disorder use in and women planning to become unless other tx options have failed or are unacceptable; women should use effective contraception during tx AIMS = 0 03/04/24 Second generation antipsychotics (SGAs) have metabolic syndrome issues with weight gain, increase in prolactin, increased waist circumference, increased lipids, and increased glucose. Thus routine monitoring of weight, metabolic labs, etc. is indicated. A general rank ordering of antipsychotics that have the greatest to the least risk of metabolic effects is olanzapine, quetiapine, risperidone, ziprasidone, and aripiprazole. However, weight gain can occur with all of these drugs and considerable variability exists among patients receiving the same drug regarding the risk of metabolic effects. Anti-psychotic agents not only increase the risk of metabolic disorder, they also increase the risk of CVA, akathisia, and movement disorders including EPS or tardive dyskinesia (more common with first generation antipsychotics) and more F31.31: Bipolar disorder, current episode depressed, mild lurasidone 40 mg tablet - Take 1 tablet(s) every day by oral route at dinner for 90 days. Qty: (90) tablet Refills: 0 Pharmacy: [facility] #[id number] Depakote 125 MG AT NIGHT WILL TITRATE NEEDED - hari 2. Generalized anxiety disorder - Zoloft 100 mg daily at night - educated on rx Medication Management and Follow-Up - Plan: - Schedule follow-up appointments every 2-3 months to monitor the patient's response to the medication regimen. - Reinforce the importance of avoiding recreational drug use due to potential neurotoxicity and interactions with prescribed medications. educated on all medications, benefits, side effects and risk, and educated on depression, anxiety, and ADHD, mood d/o and educated on compliance of medications, metabolic and movement d/o education appointment is, continue therapy discussion with patient about course of treatment and patient instructions. education on serotonin syndrome SSRI/SNRI side effects discussed including but not limited to, gastric upset, nausea, vomiting, diarrhea and/or constipation, weight changes, sexual side effects including loss of libido, increased suicidal thoughts/behaviors in children and young adults, and serotonin syndrome. F41.1: Generalized anxiety disorder sertraline 100 mg tablet - Take 1 tablet(s) every day by oral route in the evening for 90 days. Qty: (90) tablet Refills: 0 Pharmacy: [id number] 3. 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 Tobacco user Z72.0: Tobacco use 6. Long-term drug therapy Z79.899: Other director long term care (current) drug therapy Discussion Notes continue therapy obtain labs PCP educated on Depakote and risk educated to take Folic acid- pre alice vitamin or suplement OTC Patient verbalize understanding 11/29/2024 Opioid dependence, uncomplicated (ICD-10 - F11.20) Learning About Pain Control When You Have a History of Opioid Use Disorder material was published, Learning About Opioid Use Disorder material was published, Learning About Substance Use Disorder material was published, Learning About Opioid Use Disorder material was published 1. Bipolar I disorder - improved Latuda 60 mg with evening meal eat 350 calories - for bipolar depression educated on rx educated on rx not on BC- educated on Depakote and - patient has PCOS Risk- Depakote can cause major congenital malformations incl. neural tube defects, decr. IQ scores, neurodevelopmental disorders after in utero exposure; contraindicated for migraine prophylaxis use in and women of reproductive potential w/o effective contraception; should not be used for epilepsy or bipolar disorder use in and women planning to become unless other tx options have failed or are unacceptable; women should use effective contraception during tx AIMS = 0 03/04/24 Second generation antipsychotics (SGAs) have metabolic syndrome issues with weight gain, increase in prolactin, increased waist circumference, increased lipids, and increased glucose. Thus routine monitoring of weight, metabolic labs, etc. is indicated. A general rank ordering of antipsychotics that have the greatest to the least risk of metabolic effects is olanzapine, quetiapine, risperidone, ziprasidone, and aripiprazole. However, weight gain can occur with all of these drugs and considerable variability exists among patients receiving the same drug regarding the risk of metabolic effects. Anti-psychotic agents not only increase the risk of metabolic disorder, they also increase the risk of CVA, akathisia, and movement disorders including EPS or tardive dyskinesia (more common with first generation antipsychotics) and more Depakote 125 MG AT NIGHT - patient reported not taking rx and never filled rx 2. Generalized anxiety disorder - patient having increase anxiety discuss and education on all rx will add Vistaril 10 mg twice a day as needed Zoloft 100 mg daily at night - educated on rx Medication Management and Follow-Up - Plan: - Schedule follow-up appointments every 2-3 months to monitor the patient's response to the medication regimen. - Reinforce the importance of avoiding recreational drug use due to potential neurotoxicity and interactions with prescribed medications. educated on all medications, benefits, side effects and risk, and educated on depression, anxiety, and ADHD, mood d/o and educated on compliance of medications, metabolic and movement d/o education appointment is, continue therapy discussion with patient about course of treatment and patient instructions. education on serotonin syndrome SSRI/SNRI side effects discussed including but not limited to, gastric upset, nausea, vomiting, diarrhea and/or constipation, weight changes, sexual side effects including loss of libido, increased suicidal thoughts/behaviors in children and young adults, and serotonin syndrome. 3. 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 Tobacco user Do not smoke. Nicotine and other chemicals in cigarettes and cigars can cause lung damage. Ask your healthcare provider for information if you currently smoke and need help to quit. E-cigarettes or smokeless tobacco still contain nicotine. Talk to your healthcare provider before you use these products. education on decrease to stopping nicotine products and stop smoking hotline given -Quit - Yes [place] Tobacco Quitline Call a Smoking Quitline [employer] Smoking Quitline, (8-455-31L-QUIT) Smokefree.gov, which connects you with your State's Quitline, (6-236-RRGTMUG) [facility] Smoking Quitline, (4-443-OIOCFZP) 6.elevated blood pressure reading educated on healthy b/p 120/80 monitor b/p at home refer to PCP, Urgent care/ER heart healthy diet and excise limit salt intake limit soda intake and caffiene increase water 7. Long-term drug therapy Discussion Notes continue therapy obtain labs PCP educated on Depakote and risk- patient not taking rx educated to take Folic acid- pre vitamin or suplement OTC Patient verbalize understanding 11/29/2024 Other director long term care (current) drug therapy (ICD-10 - Z79.899) Medication Refill: Care Instructions material was published, Medication Refill: Care Instructions material was published 1. Bipolar I disorder - improved Latuda 60 mg with evening meal eat 350 calories - for bipolar depression educated on rx educated on rx not on BC- educated on Depakote and - patient has PCOS Risk- Depakote can cause major congenital malformations incl. neural tube defects, decr. IQ scores, neurodevelopmental disorders after in utero exposure; contraindicated for migraine prophylaxis use in and women of reproductive potential w/o effective contraception; should not be used for epilepsy or bipolar disorder use in and women planning to become unless other tx options have failed or are unacceptable; women should use effective contraception during tx AIMS = 0 03/04/24 Second generation antipsychotics (SGAs) have metabolic syndrome issues with weight gain, increase in prolactin, increased waist circumference, increased lipids, and increased glucose. Thus routine monitoring of weight, metabolic labs, etc. is indicated. A general rank ordering of antipsychotics that have the greatest to the least risk of metabolic effects is olanzapine, quetiapine, risperidone, ziprasidone, and aripiprazole. However, weight gain can occur with all of these drugs and considerable variability exists among patients receiving the same drug regarding the risk of metabolic effects. Anti-psychotic agents not only increase the risk of metabolic disorder, they also increase the risk of CVA, akathisia, and movement disorders including EPS or tardive dyskinesia (more common with first generation antipsychotics) and more Depakote 125 MG AT NIGHT - patient reported not taking rx and never filled rx 2. Generalized anxiety disorder - patient having increase anxiety discuss and education on all rx will add Vistaril 10 mg twice a day as needed Zoloft 100 mg daily at night - educated on rx Medication Management and Follow-Up - Plan: - Schedule follow-up appointments every 2-3 months to monitor the patient's response to the medication regimen. - Reinforce the importance of avoiding recreational drug use due to potential neurotoxicity and interactions with prescribed medications. educated on all medications, benefits, side effects and risk, and educated on depression, anxiety, and ADHD, mood d/o and educated on compliance of medications, metabolic and movement d/o education appointment is, continue therapy discussion with patient about course of treatment and patient instructions. education on serotonin syndrome SSRI/SNRI side effects discussed including but not limited to, gastric upset, nausea, vomiting, diarrhea and/or constipation, weight changes, sexual side effects including loss of libido, increased suicidal thoughts/behaviors in children and young adults, and serotonin syndrome. 3. 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 Tobacco user Do not smoke. Nicotine and other chemicals in cigarettes and cigars can cause lung damage. Ask your healthcare provider for information if you currently smoke and need help to quit. E-cigarettes or smokeless tobacco still contain nicotine. Talk to your healthcare provider before you use these products. education on decrease to stopping nicotine products and stop smoking hotline given 55-Quit - Yes [place] Tobacco Quitline Call a Smoking Quitline [employer] Smoking Quitline, (9-125-16D-QUIT) Smokefree.gov, which connects you with your State's Quitline, (6-073-EOCTELP) [facility] Smoking Quitline, (4-478-SJOELHU) 6.elevated blood pressure reading educated on healthy b/p 120/80 monitor b/p at home refer to PCP, Urgent care/ER heart healthy diet and excise limit salt intake limit soda intake and caffiene increase water 7. Long-term drug therapy Discussion Notes continue therapy obtain labs PCP educated on Depakote and risk- patient not taking rx educated to take Folic acid- pre alice vitamin or suplement OTC Patient verbalize understanding 08/25/2024 Tobacco use (ICD-10 - Z72.0) Deciding About Using Medicines To Quit Smoking material was published, Stopping Smokeless Tobacco Use: Care Instructions material was published, Learning About Benefits of Quitting Smoking material was published, Quitting Tobacco: Care Instructions material was published 1. Bipolar I disorder - increase Latuda 60 mg with evening meal eat 350 calories - for bipolar depression educated on rx educated on rx not on BC- educated on Depakote and - patient has PCOS Risk- Depakote can cause major congenital malformations incl. neural tube defects, decr. IQ scores, neurodevelopmental disorders after in utero exposure; contraindicated for migraine prophylaxis use in and women of reproductive potential w/o effective contraception; should not be used for epilepsy or bipolar disorder use in and women planning to become unless other tx options have failed or are unacceptable; women should use effective contraception during tx AIMS = 0 03/04/24 Second generation antipsychotics (SGAs) have metabolic syndrome issues with weight gain, increase in prolactin, increased waist circumference, increased lipids, and increased glucose. Thus routine monitoring of weight, metabolic labs, etc. is indicated. A general rank ordering of antipsychotics that have the greatest to the least risk of metabolic effects is olanzapine, quetiapine, risperidone, ziprasidone, and aripiprazole. However, weight gain can occur with all of these drugs and considerable variability exists among patients receiving the same drug regarding the risk of metabolic effects. Anti-psychotic agents not only increase the risk of metabolic disorder, they also increase the risk of CVA, akathisia, and movement disorders including EPS or tardive dyskinesia (more common with first generation antipsychotics) and more Depakote 125 MG AT NIGHT - patient reported not taking rx and never filled rx 2. Generalized anxiety disorder - Zoloft 100 mg daily at night - educated on rx Medication Management and Follow-Up - Plan: - Schedule follow-up appointments every 2-3 months to monitor the patient's response to the medication regimen. - Reinforce the importance of avoiding recreational drug use due to potential neurotoxicity and interactions with prescribed medications. educated on all medications, benefits, side effects and risk, and educated on depression, anxiety, and ADHD, mood d/o and educated on compliance of medications, metabolic and movement d/o education appointment is, continue therapy discussion with patient about course of treatment and patient instructions. education on serotonin syndrome SSRI/SNRI side effects discussed including but not limited to, gastric upset, nausea, vomiting, diarrhea and/or constipation, weight changes, sexual side effects including loss of libido, increased suicidal thoughts/behaviors in children and young adults, and serotonin syndrome. 3. 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 Tobacco user 6. Long-term drug therapy Discussion Notes continue therapy obtain labs PCP educated on Depakote and risk- patient not taking rx educated to take Folic acid- pre vitamin or suplement OTC Patient verbalize understanding 08/25/2024 Elevated blood pressure reading (ICD-10 - R03.0) 1. Bipolar I disorder - increase Latuda 60 mg with evening meal eat 350 calories - for bipolar depression educated on rx educated on rx not on BC- educated on Depakote and - patient has PCOS Risk- Depakote can cause major congenital malformations incl. neural tube defects, decr. IQ scores, neurodevelopmental disorders after in utero exposure; contraindicated for migraine prophylaxis use in and women of reproductive potential w/o effective contraception; should not be used for epilepsy or bipolar disorder use in and women planning to become unless other tx options have failed or are unacceptable; women should use effective contraception during tx AIMS = 0 03/04/24 Second generation antipsychotics (SGAs) have metabolic syndrome issues with weight gain, increase in prolactin, increased waist circumference, increased lipids, and increased glucose. Thus routine monitoring of weight, metabolic labs, etc. is indicated. A general rank ordering of antipsychotics that have the greatest to the least risk of metabolic effects is olanzapine, quetiapine, risperidone, ziprasidone, and aripiprazole. However, weight gain can occur with all of these drugs and considerable variability exists among patients receiving the same drug regarding the risk of metabolic effects. Anti-psychotic agents not only increase the risk of metabolic disorder, they also increase the risk of CVA, akathisia, and movement disorders including EPS or tardive dyskinesia (more common with first generation antipsychotics) and more Depakote 125 MG AT NIGHT - patient reported not taking rx and never filled rx 2. Generalized anxiety disorder - Zoloft 100 mg daily at night - educated on rx Medication Management and Follow-Up - Plan: - Schedule follow-up appointments every 2-3 months to monitor the patient's response to the medication regimen. - Reinforce the importance of avoiding recreational drug use due to potential neurotoxicity and interactions with prescribed medications. educated on all medications, benefits, side effects and risk, and educated on depression, anxiety, and ADHD, mood d/o and educated on compliance of medications, metabolic and movement d/o education appointment is, continue therapy discussion with patient about course of treatment and patient instructions. education on serotonin syndrome SSRI/SNRI side effects discussed including but not limited to, gastric upset, nausea, vomiting, diarrhea and/or constipation, weight changes, sexual side effects including loss of libido, increased suicidal thoughts/behaviors in children and young adults, and serotonin syndrome. 3. 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 Tobacco user 6. Long-term drug therapy Discussion Notes continue therapy obtain labs PCP educated on Depakote and risk- patient not taking rx educated to take Folic acid- pre vitamin or suplement OTC Patient verbalize understanding 11/29/2024 Tobacco use (ICD-10 - Z72.0) Deciding About Using Medicines To Quit Smoking material was published, Stopping Smokeless Tobacco Use: Care Instructions material was published, Learning About Benefits of Quitting Smoking material was published, Quitting Tobacco: Care Instructions material was published 1. Bipolar I disorder - improved Latuda 60 mg with evening meal eat 350 calories - for bipolar depression educated on rx educated on rx not on BC- educated on Depakote and - patient has PCOS Risk- Depakote can cause major congenital malformations incl. neural tube defects, decr. IQ scores, neurodevelopmental disorders after in utero exposure; contraindicated for migraine prophylaxis use in and women of reproductive potential w/o effective contraception; should not be used for epilepsy or bipolar disorder use in and women planning to become unless other tx options have failed or are unacceptable; women should use effective contraception during tx AIMS = 0 03/04/24 Second generation antipsychotics (SGAs) have metabolic syndrome issues with weight gain, increase in prolactin, increased waist circumference, increased lipids, and increased glucose. Thus routine monitoring of weight, metabolic labs, etc. is indicated. A general rank ordering of antipsychotics that have the greatest to the least risk of metabolic effects is olanzapine, quetiapine, risperidone, ziprasidone, and aripiprazole. However, weight gain can occur with all of these drugs and considerable variability exists among patients receiving the same drug regarding the risk of metabolic effects. Anti-psychotic agents not only increase the risk of metabolic disorder, they also increase the risk of CVA, akathisia, and movement disorders including EPS or tardive dyskinesia (more common with first generation antipsychotics) and more Depakote 125 MG AT NIGHT - patient reported not taking rx and never filled rx 2. Generalized anxiety disorder - patient having increase anxiety discuss and education on all rx will add Vistaril 10 mg twice a day as needed Zoloft 100 mg daily at night - educated on rx Medication Management and Follow-Up - Plan: - Schedule follow-up appointments every 2-3 months to monitor the patient's response to the medication regimen. - Reinforce the importance of avoiding recreational drug use due to potential neurotoxicity and interactions with prescribed medications. educated on all medications, benefits, side effects and risk, and educated on depression, anxiety, and ADHD, mood d/o and educated on compliance of medications, metabolic and movement d/o education appointment is, continue therapy discussion with patient about course of treatment and patient instructions. education on serotonin syndrome SSRI/SNRI side effects discussed including but not limited to, gastric upset, nausea, vomiting, diarrhea and/or constipation, weight changes, sexual side effects including loss of libido, increased suicidal thoughts/behaviors in children and young adults, and serotonin syndrome. 3. 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 Tobacco user Do not smoke. Nicotine and other chemicals in cigarettes and cigars can cause lung damage. Ask your healthcare provider for information if you currently smoke and need help to quit. E-cigarettes or smokeless tobacco still contain nicotine. Talk to your healthcare provider before you use these products. education on decrease to stopping nicotine products and stop smoking hotline given -Quit - Yes [place] Tobacco Quitline Call a Smoking Quitline The [employer] [place] Smoking Quitline, (6-582-76T-QUIT) Smokefree.gov, which connects you with your State's Quitline, (9-905-UECBFCE) Veterans Smoking Quitline, (8-457-YKIJGZP) 6.elevated blood pressure reading educated on healthy b/p 120/80 monitor b/p at home refer to PCP, Urgent care/ER heart healthy diet and excise limit salt intake limit soda intake and caffiene increase water 7. Long-term drug therapy Discussion Notes continue therapy obtain labs PCP educated on Depakote and risk- patient not taking rx educated to take Folic acid- pre alice vitamin or suplement OTC Patient verbalize understanding 11/29/2024 Elevated blood pressure reading (ICD-10 - R03.0) 1. Bipolar I disorder - improved Latuda 60 mg with evening meal eat 350 calories - for bipolar depression educated on rx educated on rx not on BC- educated on Depakote and - patient has PCOS Risk- Depakote can cause major congenital malformations incl. neural tube defects, decr. IQ scores, neurodevelopmental disorders after in utero exposure; contraindicated for migraine prophylaxis use in and women of reproductive potential w/o effective contraception; should not be used for epilepsy or bipolar disorder use in and women planning to become unless other tx options have failed or are unacceptable; women should use effective contraception during tx AIMS = 0 03/04/24 Second generation antipsychotics (SGAs) have metabolic syndrome issues with weight gain, increase in prolactin, increased waist circumference, increased lipids, and increased glucose. Thus routine monitoring of weight, metabolic labs, etc. is indicated. A general rank ordering of antipsychotics that have the greatest to the least risk of metabolic effects is olanzapine, quetiapine, risperidone, ziprasidone, and aripiprazole. However, weight gain can occur with all of these drugs and considerable variability exists among patients receiving the same drug regarding the risk of metabolic effects. Anti-psychotic agents not only increase the risk of metabolic disorder, they also increase the risk of CVA, akathisia, and movement disorders including EPS or tardive dyskinesia (more common with first generation antipsychotics) and more Depakote 125 MG AT NIGHT - patient reported not taking rx and never filled rx 2. Generalized anxiety disorder - patient having increase anxiety discuss and education on all rx will add Vistaril 10 mg twice a day as needed Zoloft 100 mg daily at night - educated on rx Medication Management and Follow-Up - Plan: - Schedule follow-up appointments every 2-3 months to monitor the patient's response to the medication regimen. - Reinforce the importance of avoiding recreational drug use due to potential neurotoxicity and interactions with prescribed medications. educated on all medications, benefits, side effects and risk, and educated on depression, anxiety, and ADHD, mood d/o and educated on compliance of medications, metabolic and movement d/o education appointment is, continue therapy discussion with patient about course of treatment and patient instructions. education on serotonin syndrome SSRI/SNRI side effects discussed including but not limited to, gastric upset, nausea, vomiting, diarrhea and/or constipation, weight changes, sexual side effects including loss of libido, increased suicidal thoughts/behaviors in children and young adults, and serotonin syndrome. 3. 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 Tobacco user Do not smoke. Nicotine and other chemicals in cigarettes and cigars can cause lung damage. Ask your healthcare provider for information if you currently smoke and need help to quit. E-cigarettes or smokeless tobacco still contain nicotine. Talk to your healthcare provider before you use these products. education on decrease to stopping nicotine products and stop smoking hotline given 71-Quit - Yes [place] Tobacco Quitline Call a Smoking Quitline The [employer] [place] Smoking Quitline, (2-500-23E-QUIT) Smokefree.gov, which connects you with your State's Quitline, (3-874-LCVPLOT) [facility] Smoking Quitline, (2-335-RGUHJZP) 6.elevated blood pressure reading educated on healthy b/p 120/80 monitor b/p at home refer to PCP, Urgent care/ER heart healthy diet and excise limit salt intake limit soda intake and caffiene increase water 7. Long-term drug therapy Discussion Notes continue therapy obtain labs PCP educated on Depakote and risk- patient not taking rx educated to take Folic acid- pre alice vitamin or suplement OTC Patient verbalize understanding 05/16/2024 Other Lurasidone Oral Tablet (LURASIDONE - ORAL) material was published, Sertraline Oral Tablet (SERTRALINE - ORAL) material was published, Valproate Delayed Release Oral Tablet (DIVALPROEX SODIUM ENTERIC-COATED TABLET - ORAL) material was published 1. Bipolar I disorder -Latuda 40 mg with evening meal eat 350 calories - educated on rx Add Depakote ER 125 MG AT NIGHT educated on rx not on BC- educated on Depakote and - patient has PCOS Risk- Depakote can cause major congenital malformations incl. neural tube defects, decr. IQ scores, neurodevelopmental disorders after in utero exposure; contraindicated for migraine prophylaxis use in and women of reproductive potential w/o effective contraception; should not be used for epilepsy or bipolar disorder use in and women planning to become unless other tx options have failed or are unacceptable; women should use effective contraception during tx AIMS = 0 03/04/24 Second generation antipsychotics (SGAs) have metabolic syndrome issues with weight gain, increase in prolactin, increased waist circumference, increased lipids, and increased glucose. Thus routine monitoring of weight, metabolic labs, etc. is indicated. A general rank ordering of antipsychotics that have the greatest to the least risk of metabolic effects is olanzapine, quetiapine, risperidone, ziprasidone, and aripiprazole. However, weight gain can occur with all of these drugs and considerable variability exists among patients receiving the same drug regarding the risk of metabolic effects. Anti-psychotic agents not only increase the risk of metabolic disorder, they also increase the risk of CVA, akathisia, and movement disorders including EPS or tardive dyskinesia (more common with first generation antipsychotics) and more F31.31: Bipolar disorder, current episode depressed, mild lurasidone 40 mg tablet - Take 1 tablet(s) every day by oral route at dinner for 90 days. Qty: (90) tablet Refills: 0 Pharmacy: [facility] #[id number] Depakote 125 MG AT NIGHT WILL TITRATE NEEDED - hari 2. Generalized anxiety disorder - Zoloft 100 mg daily at night - educated on rx Medication Management and Follow-Up - Plan: - Schedule follow-up appointments every 2-3 months to monitor the patient's response to the medication regimen. - Reinforce the importance of avoiding recreational drug use due to potential neurotoxicity and interactions with prescribed medications. educated on all medications, benefits, side effects and risk, and educated on depression, anxiety, and ADHD, mood d/o and educated on compliance of medications, metabolic and movement d/o education appointment is, continue therapy discussion with patient about course of treatment and patient instructions. education on serotonin syndrome SSRI/SNRI side effects discussed including but not limited to, gastric upset, nausea, vomiting, diarrhea and/or constipation, weight changes, sexual side effects including loss of libido, increased suicidal thoughts/behaviors in children and young adults, and serotonin syndrome. F41.1: Generalized anxiety disorder sertraline 100 mg tablet - Take 1 tablet(s) every day by oral route in the evening for 90 days. Qty: (90) tablet Refills: 0 Pharmacy: [id number] 3. 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 Tobacco user Z72.0: Tobacco use 6. Long-term drug therapy Z79.899: Other director long term care (current) drug therapy Discussion Notes continue therapy obtain labs PCP educated on Depakote and risk educated to take Folic acid- pre vitamin or suplement OTC Patient verbalize understanding 08/25/2024 Other Lurasidone Oral Tablet (LURASIDONE - ORAL) material was published, Sertraline Oral Tablet (SERTRALINE - ORAL) material was published 1. Bipolar I disorder - increase Latuda 60 mg with evening meal eat 350 calories - for bipolar depression educated on rx educated on rx not on BC- educated on Depakote and - patient has PCOS Risk- Depakote can cause major congenital malformations incl. neural tube defects, decr. IQ scores, neurodevelopmental disorders after in utero exposure; contraindicated for migraine prophylaxis use in and women of reproductive potential w/o effective contraception; should not be used for epilepsy or bipolar disorder use in and women planning to become unless other tx options have failed or are unacceptable; women should use effective contraception during tx AIMS = 0 03/04/24 Second generation antipsychotics (SGAs) have metabolic syndrome issues with weight gain, increase in prolactin, increased waist circumference, increased lipids, and increased glucose. Thus routine monitoring of weight, metabolic labs, etc. is indicated. A general rank ordering of antipsychotics that have the greatest to the least risk of metabolic effects is olanzapine, quetiapine, risperidone, ziprasidone, and aripiprazole. However, weight gain can occur with all of these drugs and considerable variability exists among patients receiving the same drug regarding the risk of metabolic effects. Anti-psychotic agents not only increase the risk of metabolic disorder, they also increase the risk of CVA, akathisia, and movement disorders including EPS or tardive dyskinesia (more common with first generation antipsychotics) and more Depakote 125 MG AT NIGHT - patient reported not taking rx and never filled rx 2. Generalized anxiety disorder - Zoloft 100 mg daily at night - educated on rx Medication Management and Follow-Up - Plan: - Schedule follow-up appointments every 2-3 months to monitor the patient's response to the medication regimen. - Reinforce the importance of avoiding recreational drug use due to potential neurotoxicity and interactions with prescribed medications. educated on all medications, benefits, side effects and risk, and educated on depression, anxiety, and ADHD, mood d/o and educated on compliance of medications, metabolic and movement d/o education appointment is, continue therapy discussion with patient about course of treatment and patient instructions. education on serotonin syndrome SSRI/SNRI side effects discussed including but not limited to, gastric upset, nausea, vomiting, diarrhea and/or constipation, weight changes, sexual side effects including loss of libido, increased suicidal thoughts/behaviors in children and young adults, and serotonin syndrome. 3. 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 Tobacco user 6. Long-term drug therapy Discussion Notes continue therapy obtain labs PCP educated on Depakote and risk- patient not taking rx educated to take Folic acid- pre vitamin or suplement OTC Patient verbalize understanding Plan Of Treatment No Information Medical (General) History Medical History History ICD Code Problems: Bipolar I disorder Generalized anxiety disorder Insomnia disorder related to another men paula disorder Long-term drug therapy Opioid dependence Tobacco user , Past Psych[facility] Hospital[facility] tions: Y - 2009 Methods use: Cutting: Y - teenager Anxiety Disorder: Y Bipolar Disorder: Y Depression Major: Y Psychotic Episodes: Y Substance Abuse: Y PTSD: N - not sure Diabetes Mellitus: (no answer) - insulin for PCOS
--- OUTSIDE RECORDS SUMMARY | 2025-05-11 16:15 | XMS_ITS | Encounter Summary ---
Author Organization [facility] Address [address] [place] [address] Phone Care Team Providers Care Data Support Analyst Name Role Phone No, Physician Primary Care Provider [phone] Miscellaneous, Not In File Primary Care Provider Unavailable Referral, Self Primary Care Provider Unavailabl e Miscellaneous, Not In File Primary Care Provider Unavailable Hailey Garrido MD Primary Care Provider + Encounter Details Date Type Department Care Team (Late st Contact Info) Description 10/10/2017 Orders Only [facility] ProviderElaine MD [address] [place] [id number] Social History Tobacco Use Types Packs/Day Years Used Date Smoking Tobacco: Every Day Cigarettes Smokeless Tobacco: Never Comments Unknown Sex and Gender Information Value Date Recorded Sex Assigned at Not on file 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 Historical Provider [...] documented as of this encounter Care Teams Data Support Analyst Relationship Specialty Start Date End Date No, Physician PCP - General 10/10/17 07/30/18 Miscellaneous, Not In File PCP - General 07/31/18 Referral, Self PCP - General 01/26/19 01/27/19 Miscellaneous, Not In File PCP - General 01/28/19 Hailey Garrido MD [address] [address] PCP - General Gynecology 01/31/19 documented as of this encounter
--- OUTSIDE RECORDS SUMMARY | 2025-05-11 16:15 | XMS_ITS | Clinical Summary ---
Author Organization [address] Address [address] [place] [id number] Care Team Providers Care Players Assistant Name Role Phone Hailey Garrido MD Primary Care Provider + Allergies No known active allergies Medications lurasidone [...] cyst 01/31/2019 Current every day smoker 01/31/2019 Encounters Date Type Department Care Team Description 02/28/2025 [facility] Outreach [facility] [address] [place], [place] [phone] Arin Adams 02/10/2025 Documentation [facility] [address] [place], [place] [phone] Carri Rodriguez 02/09/2025 Documentation [facility] [address] [place], [place] [phone] Carri Rodriguez 02/09/2025 Documentation [facility] [address] [place], [place] [phone] Carri Rodriguez 02/08/2025 11:58 AM CDT - 02/10/2025 11:55 AM CDT Hospital Encounter [facility] [address] [place] [address] Aissatou Andre MD Opioid withdrawal (HCC) (Primary Dx); Current every day smoker Discharge Disposition: Discharge to home or self care from Last 3 Months Medical History Medical History Date Comments PCOS [...] on file 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 Gender Identity Not on file Sexual Orientation [...] 02/08/2025 1:48 PM CDT Plan of Treatment Health Maintenance Due Date Last Done Comments Cervical Cancer Screening 1992 Depression Screening 1992 Hepatitis C Screening 1992 Varicella Vaccines (1 of 2 - 13+ 2-dose series) 2005 Hepatitis B Screening 2010 Regular Well Visit/Exam 18-64 2010 Pneumococcal vaccine <65 (1 of 2 - PCV) 2011 Influenza Vaccine (Season Ended) 2025 07/03/2023, 08/03/2019 DTaP/Tdap/Td Vaccine (2 - Td or Tdap) 02/07/2034 02/08/2024 HPV Vaccines Aged Out No longer eligi ble based [...] MD LAB URINE ORDERABLES Final Re sult Performing Organization Address [facility]/ZIP Co de Phone Number SHANIKA GOMES (VANDIVER) 1 [facility] [employer] [place] [address] * eGFR (02/09/2025 7:10 AM CDT) eGFR [...] LAB BLOOD ORDERABLES Final Resu lt SHANIKA GOMES (VANDIVER) 1 [facility] [place] [employer] [place] [address] * (ABNORMAL) Differential, auto (02/09/2025 7:10 AM CDT) Neutrophil abs 4.36 1.50 - 6.50 K/cumm Imm gran abs 0.02 0.00 - 0.10 K/cumm SHANIKA ELISEO (JENNIFER) Lymphocyte abs 4.23(H) 0.80 - 3.30 K/cumm [facility] (JENNIFER) Monocyte abs 0.70 0.20 - 0.80 K/cumm [facility] (JENNIFER) Eosinophil abs 0.46 0.00 - 0.50 K/cumm [facility] (JENNIFER) Basophil abs 0.09 0.00 - 0.10 K/cumm [facility] (JENNIFER) Neutrophil pct 44.2 % [facility] (JENNIFER) Comment: Interpretive [...] Lymphocyte pct 42.9 % [facility] (JENNIFER) Comment: Interpretive [...] Final Resu lt [facility] (JENNIFER) 1 [facility] [place] [address] * (ABNORMAL) CBC with auto differential (02/09/2025 [...] NRBC abs 0.00 0.00 - 0.01 K/cumm [facility] (JENNIFER) Blood 02/09/2025 7:10 AM CDT 02/09/2025 7:15 AM CDT us Angel Inman MD LAB BLOOD ORDERABLES Final Resu lt SHANIKA GOMES (JENNIFER) 1 [facility] [employer] [place] [employer] [place] [address] * Magnesium (02/09/2025 7:10 AM CDT) Magnesium 2.0 1.4 - 2.5 mg/dL Blood 02/09/2025 7:10 AM CDT 02/09/2025 7:15 AM CDT us Angel Inman MD LAB BLOOD ORDERABLES Final Resu lt SHANIKA GOMES (JENNIFER) 1 [facility] Department [place] [address] * Comprehensive metabolic panel (02/09/2025 7:10 AM CDT) Sodium 142 135 - 145 mmol/L Potassium, pl 4.3 3.3 - 4.9 mmol/L [facility] (JENNIFER) Chloride 106 97 - 110 mmol/L [facility] (JENNIFER) CO2 24 22 - 32 mmol/L [facility] (JENNIFER) Anion gap 12 2 - 15 mmol/L [facility] (JENNIFER) BUN 16 6 - 25 mg/dL [facility] (JENNIFER) Creatinine 0.81 0.60 - 1.10 mg/dL [facility] (JENNIFER) Glucose 107 70 - 199 mg/dL [facility] (JENNIFER) Comment: Interpretive Data Fasting glucose >/= 126 [...] classification and Diagnosis of Diabetes Diabetes Care 2021; 46: S19-S40. Current interpretive data was last [...] MD LAB BLOOD ORDERABLES Final Resu lt [facility] (VANDIVER) 1 [facility] Department [place] [address] from Last 3 Months Insurance [facility] IDPA Advance Directives For more information, please contact: [phone] * Full Code (Latest Code Status on File) Date Activated Date Inactivated Comments 02/08/2025 3:03 PM 02/10/2025 4:00 PM Care Teams Players Assistant Relationship Specialty Start Date End Date Hailey Garrido MD [address] [address] PCP - General Gynecology 01/31/19
--- NOTE | 2025-05-11 16:20 | ED.FEMALEGU ---
HPI - Female Genitourinary General Chief complaint: Urogenital-Female Stated complaint: poss uti Source: patient and RN notes reviewed Mode of arrival: ambulatory Limitations: no limitations History of Present Illness HPI Narrative: 34 y/o female with hx interstitial cystitis presented for c/o burning with urination, frequency, pelvic pressure, flank pain. Onset 3 days. Endorses some nausea that has resolved. denies vaginal discharge, hematuria, vomiting, constipation, diarrhea, fevers or chills. Denies concern for or STD. Related Data Home Medications ?Medication ?Instructions ?Recorded ?Confirmed ?Last Taken ?Type buprenorphine 8 mg-naloxone 2 mg tablet sublingual 01/19/25 Unknown History sublingual tablet sertraline 100 mg tablet mg 01/19/25 Unknown History Allergies Allergy/AdvReac Type Severity Reaction Status Date / Time No Known Allergies Allergy Verified 05/11/25 16:20 Review of Systems Review of Systems: CONSTITUTIONAL: Denies body aches, fever, chills, or sweats. CARDIOVASCULAR: Denies chest pain, palpitations, or edema. RESPIRATORY: Denies cough or dyspnea. GASTROINTESTINAL: Denies abdominal pain, nausea, vomiting, or diarrhea. GENITOURINARY: Reports dysuria, frequency, Denies urgency, hematuria, flank pain, discharge SKIN: Denies rash, itching, or wounds. MUSCULOSKELETAL: Denies back pain or myalgia. [facility] Past Medical History Medical History (Updated 05/11/25 @ 16:39 by Agatha Leonard APRN) Bipolar disorder Right flank pain PCOS (polycystic ovarian syndrome) On termination clerk drug therapy Insulin resistance Family History Family History Mother Hypertension Social History Social History Smoking status: Current every day smoker Alcohol intake: current Substance use type: marijuana Comments At time of signature, I have reviewed and agree with nursing past medical, surgical, social and family history unless otherwise noted. Please see nursing chart for further information. There is no relevant family history pertinent to the presenting complaint Exam Narrative: GENERAL: Well-appearing and in no acute distress. ENT: Mucous membranes pink and moist. NECK: Normal AROM. Supple. CHEST: No respiratory distress. Clear to auscultation. HEART: Regular rate and rhythm. ABDOMEN: Soft, nontender, nondistended, normal active bowel sounds. No CVA tenderness SKIN: Warm, dry, no rash. NEURO: No focal deficits. Alert and oriented x3. Gait steady. PSYCH: Normal affect. Course Course Emergency Course: Patient is aware of diagnosis, understands and agrees to treatment plan. Anticipatory guidance given. Patient agrees to follow-up as directed and is aware of reasons to seek care at the emergency department. Portions of this record may have been created with voice recognition software Level of Care: Express Care Visit Vital Signs Vital signs: Reviewed MDM - Female Genitourinary MDM Narrative Medical decision making narrative: Discussed physical exam findings and urine dip, will culture and treat accordingly. Advised supportive measures and signs/symptoms to go to the ER. Pt is appropriate for outpt treatment and f/u. Differential Diagnosis Differential diagnosis: Likely urinary tract infection, bacterial vaginosis, vaginitis and cystitis Discharge Plan Discharge Clinical Impression: Dysuria Patient Disposition: Home Condition: Stable Instructions: Antibiotic Form, Urinary Tract Infection in Women (ED), Interstitial Cystitis (ED) Additional Instructions: Your urine will be sent of for a culture to determine if bacteria is causing your symptoms. If the culture shows a UTI, you will be notified and an antibiotic will be called in for you. Increase water intake You make take over the counter AZO to help with symptoms you will need to follow up with your PCP for further evaluation and treatment if symptoms persist, call to schedule follow-up appointment. Go to the ER for any worsening symptoms or concerns. Patient Language: Azeri Prescriptions: No Action albuterol sulfate [ProAir HFA] 90 mcg/actuation HFA aerosol inhaler 2 puff INHALATION QID PRN (Reason: shortness of breath or wheezing) Qty: 18 0RF sertraline 100 mg tablet buprenorphine-naloxone 8-2 mg tablet, sublingual SUBLINGUAL loratadine [Allergy Relief (loratadine)] 10 mg tablet 10 mg PO DAILY Qty: 30 0RF Follow-up/Referrals: Hailey Garrido MD [Primary Care Provider] - Stand Alone Forms: Work/School Release IP Time of Disposition: 16:39
[2025-05-11 16:22] VITALS: BP 143/55; PULSE 84; RESP 20; TEMP 36.2; O2SAT 98
[2025-05-11 16:50] LABS: EDUAAPPEAR Clear; EDUABILI Negative (Negative); EDUABLOOD 1+ (Negative); EDUACOLOR1 Yellow; EDUAGLUCOSE Negative (Negative); EDUAKETONE Negative (Negative); EDUALEUKO Negative (Negative); EDUANITRATE Negative (Negative); EDUAPH 6.0; EDUAPROTEIN Negative (Negative); EDUASPGRAVITY 1.025; EDUAUROBILI 0.2
== END 2025-05-11 16:47 | disposition home or self-care (01) ==
PROVIDERS: Emergency Provider Nurse Practitioner Family; PCP Obstetrics & Gynecology Gynecology
DX: R30.0 Dysuria (principal); F17.200 Nicotine dependence, unspecified, uncomplicated; F12.90 Cannabis use, unspecified, uncomplicated; E28.2 Polycystic ovarian syndrome; E88.819 Insulin resistance, unspecified
CPT/HCPCS: 81003; 87086; 99213; G0463

== ENCOUNTER 2025-07-24 17:43 | Emergency (ER) | payer OTHER, SELFPAY ==
--- OUTSIDE RECORDS SUMMARY | 2025-05-23 09:20 | XMS_ITS ---
Author Organization On license of [facility] Address [address] [place] [address] Care Team Providers Care Rubbish Collection Supervisor Name Role Phone Johnathan Pimentel Primary Care Provider Monserrat Ma Unavailable [phone] REASON FOR VISIT MAT F/U Encounters Encounter Location Date Provider Diagnosis [place] [address] [place] [address] 05/23/2025 Monserrat Ma Plan Of Treatment No Information Progress Notes * Ingrid SORIANOKittyB:1990 (35 yo F)Acc No.[id number]:05/23/2025 UNLOCKED PROGRESS NOTE Patient: Jaycee JONES Provider: PAULINA Fuentes, CASING SEWER, CITIZENSHIP TEACHER-C :1990 A ge:34 Y S ex:Female Date:05/23/2025 [address] Pcp:Johnathan Pimentel Subjective: * Chief Complaints: * 1 . MAT F/U. * Medical History: Objective: * Vitals: Assessment: Plan: * Treatment: * Care Plan Details* * Electronic signature of Trinh Ma APRN, [id number] on 07/24/2025 at 05:45 PM CDT Sign off status: Pending * Provider: Ghulam Ma MSN, CASING SEWER, CITIZENSHIP TEACHER-C Date: 0 05/23/2025 Generated for Carlos Coello/Atilio on: 0 07/24/2025 05:45 PM CDT
--- OUTSIDE RECORDS SUMMARY | 2025-06-06 08:45 | XMS_ITS ---
Author Organization [facility] Address [facility] [address] [facility] [address] [place] [address] Care Team Providers Care Environment Coordinator Name Role Phone Milli Garrison Unavailable [phone] REASON FOR VISIT Patient only has medicaid for insurance Social History Sex Assigned At : Social History Observation Description Sex Assigned At Female Encounters Encounter Location Date Provider Diagnosis [facility] [address] [facility] [address] [facility] [address] [place] [address] 06/06/2025 Milli Garrison Plan Of Treatment No Information Progress Notes * WESTON CHURCH MDOB: (35 yo F)Acc No.[id number]:06/06/2025 Patient: Camille MARTIN WESTON Zuñiga Provider: AN VILLEGAS :1990 A ge:35 Y S ex:Female Date:06/06/2025 Address:[address] [place], [place] [address] Subjective: * Chief Complaints: * P atient only has medicaid for insurance * Electronic signature of AN Whitney on 07/24/2025 at 05:46 PM CDT Sign off status: Pending * Provider: AN VILLEGAS Date: 0 06/06/2025 Generated for Printi ng/Fadeniseg/eTransmitting on: 0 07/24/2025 05:46 PM CDT
--- OUTSIDE RECORDS SUMMARY | 2025-07-24 17:45 | XMS_ITS | Encounter Summary ---
Author Organization [facility] Address [address] [place] [address] Phone Care Team Providers Care Senior Interactive Developer Name Role Phone No, Physician Primary Care Provider [phone] Miscellaneous, Not In File Primary Care Provider Unavailable Referral, Self Primary Care Provider Unavailabl e Miscellaneous, Not In File Primary Care Provider Unavailable Hailey Garrido MD Primary Care Provider + Encounter Details Date Type Department Care Team (Late st Contact Info) Description 10/10/2017 Orders Only [facility] ProviderElaine MD [address] [place] [address] Social History Tobacco Use Types Packs/Day Years Used Date Smoking Tobacco: Every Day Cigarettes Smokeless Tobacco: Never Comments Unknown Sex and Gender Information Value Date Recorded Sex Assigned at Not on file Legal Sex Female 12:43 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 Historical Provider [...] documented as of this encounter Care Teams Senior Interactive Developer Relationship Specialty Start Date End Date No, Physician PCP - General 10/10/17 07/30/18 Miscellaneous, Not In File PCP - General 07/31/18 Referral, Self PCP - General 01/26/19 01/27/19 Miscellaneous, Not In File PCP - General 01/28/19 Hailey Garrido MD [address] [address] PCP - General Gynecology 01/31/19 documented as of this encounter
--- OUTSIDE RECORDS SUMMARY | 2025-07-24 17:45 | XMS_ITS | Patient Health Record ---
Author Organization [facility] Address [address] [place] [address] Care Team Providers Care Fur Cutting Machine Operator Name Role Phone Johnathan Pimentel Primary Care Provider [phone] Monserrat Ma Unavailable [phone] Milli Soto Unavailable [phone] Lidia Bullock Unavailable [phone] Allergies No Known Allergies Results Component Value Reference Range Notes Test, Urine Reviewed date:02/10/2025 02:32:02 PM Interpretation:negative Performing Lab: Notes/Report: negative Test, Urine neg Negative - Negative Breathalyzer Reviewed date:02/10/2025 03:33:55 PM Interpretation:.000 Performing Lab: Notes/Report: .000 JAYLAN .000 QuantiFERON-TB Gold Plus ([id number]) Reviewed date:02/15/2025 08:09:03 AM Interpretation: [facility]forming [facility] [address] [facility], Phone - [phone], Director - PhDRicchiori Notes/Report: QuantiFERON Incubation Incubation performed. QuantiFERON-TB Gold [...] ne OXY neg PCP neg BUP pos 14 Panel Urine Drug Screen Reviewed date:07/18/2025 09:38:19 AM Interpretation: Performing Lab: Notes/Report: THC pos SURYA neg MOP (OPI) neg AMP neg MET neg BAR neg BZO neg MDMA neg MTD neg OXY neg PCP neg BUP pos TCA neg FTY nrg Reason For Referral Reason benefit application Diagnosis 1 Opioid use disorder (F11.99) Referral Organization [facility] Referring Provider First Name Monserrat Referring Provider Last Name Francesca Referring Provider [facility] Referred Provider [facility] General Notes Monserrat Ma 11:10:46 AM > Currently without insurance. Needing help with benefit application Clinical Notes Riya Villarreal 01:21:18 PM >Call to client, no answer LVM.Phil Michelle R 01/31/2025 02:54:09 PM >Sent client info to [facility] to help enroll in insurance plan. Referral Priority Routine Medications Medication SIG (Take, Route, Frequency, Duration) Notes Start Date End Date Status Sublocade 300 MG/1.5ML 1.5 mL Subcutaneo us every 28 days; Duration: 28 days 07/14/2025 Active Sertraline HCl 100 MG 1 tablet Orally On ce a day Active Buprenorphine HCl-Naloxone HCl 8-2 MG 1 tablet under the tongue and allow to dissolve Sublingual twice a day 05/23/2025 Active Social History Tobacco Use: Social History [...] phone, visiting friends or family, going to congregation or club meetings) More than 5 times a week How stressed are you? Stress is when someone feels tense, nervous, anxious, or can\t sleep at night because their mind is troubled Somewhat In the past year have you sp ent more than 2 nights in a row in a detention, correction, fpc center, or juvenile correctional facility? No Are [...] Status W/U Status Risk Notes Problem Obesity (926096086) Obesity (BMI 30-39.9) (E66.9) Active confirmed Problem Opioid use disorder (8209887392) Opioid use disorder (F11.99) Active confirmed Problem Tobacco user (104757883) Nicotine dependence with current use (F17.200) Active confirmed Vital Signs Heart Rate 80 /min 07/14/2025 Temperature 97.3 degrees Fahrenheit 02/10/2025 Respiratory Rate 16 /min 07/14/2025 Oximetry 97 % 07/14/2025 Blood pressure diastolic 90 mm Hg 07/14/2025 Height 63 in 07/14/2025 Blood pressure systolic 148 mm Hg 07/14/2025 Weight 229 lbs 07/14/2025 BMI 40.56 kg/m2 07/14/2025 Encounters Encounter Location Date Provider Diagnosis [facility] [address] [place] [address] 01/24/2025 Jenia Heavens Opioid use disorder F11.99 ; Nicotine dependence, unspecified, uncomplicated F17.200 ; Nutritional counseling Z71.3 and Obesity (BMI 30-39.9) E66.9 [facility] [address] [place] [address] 02/10/2025 Johnathan Pimentel Adult general medica l exam Z00.00 and Opioid use disorder F11.99 [place] [address] [place] [address] 02/10/2025 Lidia Bullock [facility] [place] [place] [address] 02/15/2025 Jenia Heavens Opioid use disorder F11.99 ; Obesity (BMI 30-39.9) E66.9 and Nicotine dependence with current use F17.200 [facility] [place] [place] [address] 07/14/2025 Jenia Heavens Opioid use disorder F11.99 and Obesity (BMI 30-39.9) E66.[address] [address] 01/24/2025 Johnathan Pimentel [facility] [place] [address] 02/13/2025 Milli Soto Opioid use disorder F11.99 [facility] [place] [address] 05/23/2025 Jenia Heavens Opioid use disorder F11.99 [facility] [place] [address] 06/27/2025 Johnathan Pimentel Assessments Encounter Date Diagnosis (ICD Code) Assessment Notes Treatment Notes Treatment Clinical Notes Section Notes 02/10/2025 Adult general medical exam (ICD-10 - Z00.00) 02/10/2025 Opioid use disorder (ICD-10 - F11.99) 02/15/2025 Obesity (BMI 30-39.9) (ICD-10 - E66.9) 02/15/2025 Opioid use disorder (ICD-10 - F11.99) 07/14/2025 Obesity (BMI 30-39.9) (ICD-10 - E66.9) 07/14/2025 Opioid use disorder (ICD-10 - F11.99) 02/13/2025 Opioid use disorder (ICD-10 - F11.99) 01/24/2025 Nicotine dependence, unspecified, uncomplicated (ICD-10 - F17.200) 01/24/2025 Opioid use disorder (ICD-10 - F11.99) 05/23/2025 Opioid use disorder (ICD-10 - F11.99) 01/24/2025 Nutritional counseling (ICD-10 - Z71.3) 02/15/2025 Nicotine dependence with current use (ICD-10 - F17.200) 01/24/2025 Obesity (BMI 30-39.9) (ICD-10 - E66.9) 01/24/2025 Other Discussed medication side effects, adverse effects, risks, benefits, as well as interactions. Encouraged non-use of opioids. Has naloxone. Recommended participation in recovery groups and/or counseling services. May contact office with questions or concerns. 02/10/2025 Other [facility] SIGNED FOR [facility] 02/10/2025 Other Clinician met w ith client to assess needs for residential services. [...] self-administe r their own oral medications per [facility] Protocol. 07/14/2025 Other Patient agrees to take medication as prescribed. Discussed medication side effects, adverse effects, risks, benefits, as well as interactions. Encouraged non-use of opioids. Has naloxone. Recommended participation in recovery groups and/or counseling services. May contact office with questions or concerns. Patient may self-administe r their own medications or may self-administe r their own oral medications per [facility] Protocol. Plan Of Treatment Pending Test Test Name Order Date Test, Urine 01/24/2025 12 Panel Urine Drug Screen 01/24/2025 Insurance Providers Payer Name Payer Address Payer Phone Subscriber Number Group Number Insured Name Patient Relationship to Insured Coverage Start Date Coverage End Date [facility] Attn Claims Department [address] [place] [address] [phone] [id number] Jaycee Soriano Self - patient is the insured 5 Medications Administered Medication Instructions Date of Administration Dosage Notes Sublocade 07/14/2025 300 mg Sole Villarreal 07/14/2025 12:10 PM CDT >Given Subq RUQ, tolerated well. [facility]# [id number]. Medical (General) History Medical History History ICD Code Bipolar disorder Bladder disorder PCOS Surgical History Surgery Date(Month/Year) Hospitalization History Reason Date(Month/Year) detox
--- OUTSIDE RECORDS SUMMARY | 2025-07-24 17:45 | XMS_ITS | Clinical Summary ---
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 Gender Identity Not on file Sexual Orientation [...] <65 (1 of 2 - PCV) 2011 HPV Vaccines (1 - 3-dose SCDM series) 2019 Influenza Vaccine (#1) 2025 07/03/2023, 2018 DTaP/Tdap/Td Vaccine (2 - Td or Tdap) 02/07/203406/2024 Insurance [facility] Address: [place] [address] [facility] Address: [place] [id number] Advance Directives For more information, please contact: [phone] * Full Code (Latest Code Status on File) Date Activated Date Inactivated Comments 02/08/2025 3:03 PM 02/10/2025 4:00 PM Care Teams Center Machine Operator Relationship Specialty Start Date End Date Hailey Garrido MD [address] [address] PCP - General Gynecology 01/31/19
[2025-07-24 17:46] VITALS: BP 124/76; PULSE 77; RESP 20; TEMP 36.4; O2SAT 98
--- OUTSIDE RECORDS SUMMARY | 2025-07-24 17:46 | XMS_ITS | Patient Health Record ---
Author Organization [facility] [employer] Address [address] [place] [address] Care Team Providers Care Felling Bucking Supervisor Name Role Phone Milli Garrison Unavailable [phone] Allergies No Known Allergies Reason For Referral No Information Medications Medication SIG (Take, Route, Frequency, Duration) Notes Start Date End Date Status Sertraline HCl 100 MG Tablet 1 tablet Oral Once a day; Duration: 90 days Active hydrOXYzine HCl 10 MG Tablet 1 tablet as needed Orally twice a day; Duration: 90 days 11/29/2024 Active Suboxone *Pick strength-f orm from [facility] for eRX* 03/04/2024 Active Lurasidone HCl 60 MG Tablet 1 tablet in the evening with food Oral Once a day; Duration: 90 days appointment needed appointment needed Active Immunizations Vaccine Route Administration Date Status Comme nts Influenza, unspecified formulation Unknown 07/03/2023 A dministered Pfizer Biontech Covid-19 Vac cine 2nd dose Unknown 01/20/2021 Administered Pfizer Biontech Covid-19 Vac cine 2nd dose Unknown 02/09/2021 Administered Tdap Unknown 02/01/2024 Administered Social History Sex Assigned At : Social History Observation Description Sex Assigned At Female Social History Additional Details Category Social Info Options Details Migrated Social History Migrated Social History Alcohol Intake: None 03/04/2024,Tobacco Years: Current every day smoker 03/04/2024 Problems Problem Type SNOMED Code ICD Code Onset Dates Problem Status W/U Status Risk Notes Problem Opioid dependence (32734210) Opioid dependence, uncomplicated (F11.20) 05/03/202 4 Active confirmed Problem Bipolar affective disorder, currently depressed, mild (992891440) Bipolar disorder, current episode depressed, mild (F31.31) 4 Active confirmed Problem Generalized anxiety disorder (98892457) Generalized anxiety disorder (F41.1) 4 Active confirmed Problem Insomnia disorder related to another mental disorder (12968205) Insomnia due to other mental disorder (F51.05) 4 Active confirmed Problem Tobacco use (348519317) Tobacco use (Z72.0) Active confirmed Problem Long-term current use of drug therapy (865039116) Other shelter (current) drug therapy (Z79.899) 4 Active confirmed Problem Elevated blood-pressure reading without diagnosis of hypertension (793368536) Elevated blood pressure reading (R03.0) Active confirmed Vital Signs Heart Rate 90 /min 11/29/2024 Height-cm 160.02 cm 11/29/2024 Blood pressure diastolic 83 mm Hg 11/29/2024 Weight-kg 93.26 kg 11/29/2024 Height 63.00 in 11/29/2024 Blood pressure systolic 122 mm Hg 11/29/2024 Weight 205.6 lbs 11/29/2024 BMI 36.42 kg/m2 11/29/2024 Encounters Encounter Location Date Provider Diagnosis [facility] [employer] [place] [address] [address] 08/25/2024 Milli Garrison Bipolar disorder, current episode depressed, mild F31.31 ; Generalized anxiety disorder F41.1 ; Insomnia due to other mental disorder F51.05 ; Opioid dependence, uncomplicated F11.20 ; Other shelter (current) drug therapy Z79.899 ; Tobacco use Z72.0 and Elevated blood pressure reading R03.0 [facility] [employer] [facility] [address] [address] 10/06/2024 Milli Garrison [facility] [employer] [facility] [address] [facility] [address] [place] [address] 11/28/2024 Milli Garrison [facility] [employer] [facility] [address] [address] 11/29/2024 Milli Garrison Bipolar disorder, current episode depressed, mild F31.31 ; Generalized anxiety disorder F41.1 ; Insomnia due to other mental disorder F51.05 ; Opioid dependence, uncomplicated F11.20 ; Other shelter (current) drug therapy Z79.899 ; Tobacco use Z72.0 and Elevated blood pressure reading R03.0 [facility], [facility] [address] [facility] [address] [place] [address] 02/27/[address] [facility], [facility] [address] [address] 04/18/[address] [facility], [facility] [address] [facility] [address] [place] [address] 08/24/2024 Milli Thery Bipolar disorder, current episode depressed, mild F31.31 [facility] [address] [address] 01/16/2025 Milli Thery Bipolar disorder, current episode depressed, mild F31.31 [facility] [address] [address] 02/17/[address] [facility], [facility] [address] [address] 06/06/2025 Milli Thery Bipolar disorder, current episode depressed, mild F31.31 and Generalized anxiety disorder F41.1 [facility] [address] [address] 01/16/2025 Milli Thery Bipolar disorder, current episode depressed, mild F31.31 Assessments Encounter Date Diagnosis (ICD Code) Assessment Notes Treatment Notes Treatment Clinical Notes Section Notes 08/24/2024 Bipolar disorder, current episode depressed, mild (ICD-10 - F31.31) 08/25/2024 Bipolar disorder, current episode depressed, mild [...] or suplement OTC Patient verbalize understanding 11/29/2024 Bipolar disorder, current episode depressed, mild [...] nicotine products and stop smoking hotline given 80Quit - Yes [place] Tobacco Quitline Call a Smoking Quitline The [employer] Smoking Quitline, (7-854-14F-QUIT) Smokefree.gov, which connects you with your State's Quitline, (2-360-IAGMPIL) Veterans Smoking Quitline, (0-248-ASULTFU) 6.elevated blood pressure reading educated on healthy [...] current episode depressed, mild (ICD-10 - F31.31) 06/06/2025 Bipolar disorder, current episode depressed, mild (ICD-10 - F31.31) 06/06/2025 Generalized anxiety disorder (ICD-10 - F41.1) 11/29/2024 Generalized anxiety disorder (ICD-10 - F41.1) [...] stop smoking hotline given Quit - Yes [place] Tobacco Quitline Call a Smoking Quitline The [employer] Smoking Quitline, (4-103-10O-QUIT) Smokefree.gov, which connects you with your State's Quitline, (4-088-FAKNDZO) [facility] Smoking Quitline, (8-288-YOHUBYZ) 6.elevated blood pressure reading educated on healthy [...] or suplement OTC Patient verbalize understanding 08/25/2024 Insomnia due to other mental disorder [...] online less 1 year NOT PRESCRIBED BY [facility] 4. Insomnia disorder related to another mental [...] stop smoking hotline given -Quit - Yes [place] Tobacco Quitline Call a Smoking Quitline The [employer] Smoking Quitline, (9-700-39W-QUIT) Smokefree.gov, which connects you with your State's Quitline, (5-090-CDPYBGG) Veterans Smoking Quitline, (1-798-EKOOTZK) 6.elevated blood pressure reading educated on healthy [...] stop smoking hotline given -Quit - Yes [place] Tobacco Quitline Call a Smoking Quitline The [employer] Smoking Quitline, (1-947-77C-QUIT) Smokefree.gov, which connects you with your State's Quitline, (5-631-RXBJEAN) Veterans Smoking Quitline, (9-019-OVLRYFM) 6.elevated blood pressure reading educated on healthy [...] suplement OTC Patient verbalize understanding 08/25/2024 Other shelter (current) drug therapy (ICD-10 - Z79.899) Medication [...] suplement OTC Patient verbalize understanding 11/29/2024 Other termite exterminator (current) drug therapy (ICD-10 - Z79.899) Medication [...] stop smoking hotline given -Quit - Yes [place] Tobacco Quitline Call a Smoking Quitline [employer] Smoking Quitline, (2-163-60F-QUIT) Smokefree.gov, which connects you with your State's Quitline, (1-802-ZXKFMZM) Veterans Smoking Quitline, (8-243-TSTWAFG) 6.elevated blood pressure reading educated on healthy [...] stop smoking hotline given Quit - Yes [place] Tobacco Quitline Call a Smoking Quitline The [employer] Smoking Quitline, (3-664-41P-QUIT) Smokefree.gov, which connects you with your State's Quitline, (0-386-YYYIZQE) Veterans Smoking Quitline, (5-735-AMKXTYM) 6.elevated blood pressure reading educated on healthy [...] stop smoking hotline given Quit - Yes [place] Tobacco Quitline Call a Smoking Quitline The [employer] Smoking Quitline, (7-533-03V-QUIT) Smokefree.gov, which connects you with your State's Quitline, (8-708-QTZHBQD) Veterans Smoking Quitline, (9-008-JYQWEFD) 6.elevated blood pressure reading educated on healthy [...] verbalize understanding Plan Of Treatment No Information Insurance Providers Payer Name Payer Address Payer Phone Subscriber Number Group Number Insured Name Patient Relationship to Insured Coverage Start Date [place] [address] SELF PAY [employer] Self - patient is the insured Medical (General) History Medical History History ICD [...]
--- OUTSIDE RECORDS SUMMARY | 2025-07-24 17:46 | XMS_ITS | Clinical Summary ---
Author Organization [facility] Address [address] [address] Phone Care Team Providers Care Inside Sales Professional Name Role Phone Provider, Unknown Primary Care [...] Comments Blood Pressure 118/80 12/11/2021 1:24 PM ABLE BODIED WATCHMAN Pulse 85 12/11/2021 1:24 PM ABLE BODIED WATCHMAN Temperature 37.2 C (99 F) 12/11/2021 1:24 PM ABLE BODIED WATCHMAN Respiratory Rate 16 12/11/2021 1:24 PM ABLE BODIED WATCHMAN Oxygen Saturation 97% 12/11/2021 1:24 PM ABLE BODIED WATCHMAN Inhaled Oxygen Concentration - - Weight 86.2 kg (190 lb) 12/11/2021 1:24 PM ABLE BODIED WATCHMAN Height - - Body Mass Index - - Plan of Treatment Health Maintenance Due Date Last Done Comments Hepatitis C Virus (HCV) Screening 1992 TdaP Immunization 1992 Hepatitis B Immunization (1 of 3 - 19+ 3-dose series) 2011 Pap Smear 2013 Human Papillomavirus (HPV) Immunization (1 - 3-dose SCDM series) 2019 Cervical Cancer Screening (CCS) 2022 HPV/Cotest 2022 Influenza Immunization (#1) 2025 08/03/2019 SARS-COV-2 Immunization ( season) 2025 02/09/2021, 01/20/2021 Respiratory Syncytial Virus (RSV) Immunization [...] to complete this topic Insurance Care Teams Inside Sales Professional Relationship Specialty Start Date End Date Provider, Unknown UNKNOWN PCP - General 12/11/21
--- OUTSIDE RECORDS SUMMARY | 2025-07-24 17:46 | XMS_ITS | Clinical Summary ---
Author Organization [facility] [employer] [place] Address [address] [place] [address] Care Team Providers Care Retail Specialist Name Role Phone Unavailable Primary Care Provider [...] Encounters Date Type Department Care Team Description 07/19/2025 External Device Data [facility] ABSTRACTION Provider, Abstract 06/20/2025 External Device Data [facility] ABSTRACTION Provider, Abstract 06/20/2025 External Device Data [facility] ABSTRACTION Provider, Abstract 06/07/2025 External Device Data [facility] ABSTRACTION Provider, Abstract 05/23/2025 External Device Data [facility] ABSTRACTION Provider, Abstract 05/23/2025 External Device Data [facility] ABSTRACTION Provider, Abstract 05/23/2025 External Device Data [facility] ABSTRACTION Provider, Abstract 05/17/2025 External Device Data [facility] ABSTRACTION Provider, Abstract 05/16/2025 External Device Data [facility] ABSTRACTION Provider, Abstract 05/02/2025 External Device Data [facility] ABSTRACTION Provider, [...] (1 of 3 - 19+ 3-dose series) 05/03 HPV VACCINES (1 - 3-dose SCDM series) 2019 PAP SMEAR 06/22/2023 06/22/2020 INFLUENZA VACCINE (#1) 2025 08/03/2019 CERVICAL CANCER SCREENING 06/22/2025 HPV/Cotest (21-29) 06/22/2025 06/22/2020 HPV/Cotest (30-65) 06/22/2025 06/22/2020 DTAP/TDAP/TD VACCINES (2 - Td or Tdap) 02/07/2034 Procedures Procedure Name Priority Date/Time Associated Diagnosis [...] false-positive and false-negative reports do occur. CYTOLOGY RETAIL CUSTODIAL ASSOCIATE METHODOLOGY Comment [facility] Comment: This liquid [...] - 06/27/2020 3:35 AM CDT Performed at: [address] [place] [address] [place] [id number] Aquatic Habitat Biologist: Kassandra Pena MD, Phone: [phone] Performed at: 02 - [facility] [address] [place] [id number] Aquatic Habitat Biologist: Kassandra Pena MD, Phone: [phone] Specimen Comment: No. of containers..01 ThinPrep Vial us Jocelyn Swartz NP PATHOLOGY/CYTOLOGY BYRON PEREZ Final Result [facility] [phone] from Last 3 Months or Most Recently Relevant to Health Maintenance Insurance * Guarantor: [employer] [employer] THRU D (C) Account Type Relation to Patient Date of Phone Billing Address Corporate Employer ATTN: SLOAN MUNOZ [address] [address] [facility] OPEN ACCESS
--- NOTE | 2025-07-24 17:47 | ECG_ITS ---
Test Date: 2025-07-24 17:59:56 Measurements Intervals [place] Rate: 74 P: 55 [place]: 161 QRS: 46 QRSD: 99 T: 16 QT: 379 QTc: 421 Interpretive Statements SINUS RHYTHM NORMAL ECG No previous ECG available for comparison Electronically Signed On 07-25-2025 12:15:43 CDT by Gt Gtz M.D.
--- NOTE | 2025-07-24 18:19 | ED_ITS ---
HPI - General Adult General Chief complaint: Unspecified Stated complaint: infection of feet/ankles swollen/chest tightness Time Seen by Provider: 07/24/25 18:00 Source: patient and RN notes reviewed Mode of arrival: ambulatory Limitations: no limitations History of Present Illness HPI narrative: 35-year-old female presents Express Care complaining of multiple medical complaints. Patient reports she has athlete's to both her feet that been going on for while reports rash to her hands. Patient also noticed it last night her legs were becoming swollen more than normal and she developed chest tightness that is being in occurring intermittently. Patient reports the chest signs in the middle of her chest will last few minutes and subside. Patient says that is worse with exertion. Patient reports currently having chest tightness. Patient also reports some shortness breath. Patient denies any fevers, body aches, chills, nausea, vomiting, diarrhea, upper respiratory symptoms, cough, dizziness, lightheadedness, loss of consciousness, headache, vision changes, or any other symptoms. Patient has not tried anything [id number]-[id number] for symptoms. Patient also reports history of bipolar disorder, PCOS, she reports she is a smoker has a history of hypertension is not taking for it. Patient denies any other significant past medical problems. Related Data Home Medications ?Medication ?Instructions ?Recorded ?Confirmed ?Last Taken ?Type buprenorphine 8 mg-naloxone 2 mg tablet sublingual Unknown History sublingual tablet sertraline 100 mg tablet mg 01/19/25 Unknown History Allergies Allergy/AdvReac Type Severity Reaction Status Date / Time No Known Allergies Allergy Verified 07/24/25 17:52 Review of Systems Review of Systems: CONSTITUTIONAL: Denies fever, chills, or sweats. EYES: Denies visual changes, redness, or discharge. ENT: Denies rhinorrhea, congestion, sore throat, or otalgia. CARDIOVASCULAR: Positive for chest tightness, chest pain with exertion,. Negative for dizziness, lightheadedness, palpitations, or edema. RESPIRATORY: Denies cough or wheezing. Positive for dyspnea. GASTROINTESTINAL: Denies abdominal pain, nausea, vomiting, or diarrhea. GENITOURINARY: Denies dysuria or hematuria. SKIN: Denies itching. Positive for rash. MUSCULOSKELETAL: Denies back pain, joint pain, or myalgia. NEUROLOGIC: Denies headache, numbness, or weakness. PSYCHIATRIC: Denies anxiety or depression. All other systems reviewed are negative, except as documented in HPI. 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 There is no relevant family history pertinent to the patient complaint. Exam Narrative: GENERAL: This is a well-nourished, well-developed adult, in no apparent distress. They are non ill-appearing, nontoxic appearing. Patient is morbidly obese. Physical exam limited due to her large body habitus. HEAD: normocephalic, atraumatic. EYES: Sclera clear/white. Conjunctiva normal. Vision is grossly intact. Extraocular movements intact EARS: External ears normal, Hearing grossly intact. NOSE: External nose normal THROAT: Mucous membranes moist, NECK: Neck supple, CARDIOVASCULAR: Regular rate and rhythm. Normal S1-S2. No clicks, gallops, rubs, or murmurs. RESPIRATORY: Respiratory rate normal, respiratory effort nonlabored, no respiratory distress. Lungs sounds clear to auscultation. Breath sounds equal bilaterally. No adventitious lung sounds. SKIN: Bilateral hands: Small circular Vesicular pruritic lesions present to the lateral dorsal aspect the patient's fingers on the palmar surface of her hands and soles of feet. Bilateral feet: Hyperkeratotic eruptions to the lateral and plantar surface of the feet it appears scaly and pruritic. Under the breasts: They are erythematous, beefy red, wet appearing with satellite lesions present. No other suspicious rash, or lesions to patient's skin. No area of fluctuance, no induration, no exudate. NEURO: awake, alert, and oriented to person, place and time. There were no obvious focal neurologic abnormalities. EXTREMITIES: No joint tenderness, effusion. Bilateral lower extremities are edematous left greater than right. Nonpitting. BACK: Nontender without deformity. Course Course Emergency Course: Portions of this record may have been created with voice recognition software Level of Care: Express Care Visit Vital Signs Vital signs: Vital Signs Temperature 97.6 F 07/24/25 17:46 Pulse Rate 77 07/24/25 17:46 Respiratory Rate 20 07/24/25 17:46 Blood Pressure 124/76 07/24/25 17:46 Pulse Oximetry 98 07/24/25 17:46 Oxygen Delivery Room Air 07/24/25 17:46 Temperature 97.6 F 07/24/25 17:46 Pulse Rate 77 07/24/25 17:46 Respiratory Rate 20 07/24/25 17:46 Blood Pressure 124/76 07/24/25 17:46 Pulse Oximetry 98 07/24/25 17:46 Oxygen Delivery Room Air 07/24/25 17:46 Reviewed Transfer Transfered to: [facility] Transportation: Other (Private vehicle) Transfer rationale: Chest tightness, chest daily exertion, shortness of breath, leg swelling. Patient requiring higher level care. Further evaluation management, potential lab work and imaging. Accepting physician: Dr. Grimes Medical Decision Making MDM Narrative Medical decision making narrative: EKG is sinus rhythm without any ischemic findings. Patient currently having chest tightness. Lungs clear to auscultation. Patient is in respiratory di stress. Patient's risk factors of high blood pressure and smoking. [place] heart score 3. Cannot confidently rule out CAD. Patient also appears to have yeast infections present on her breast and her feet. Appears patient also has eczema to her hands. Patient concerns for STIs. Will send a prescription clotrimazole for her yeast infection. However her chest tightness is concerning given her symptoms of dyspnea, chest pain with exertion, and leg swelling. Given patient's symptoms, it is recommend the patient seek a higher level care and proceed immediately to the emergency department. Patient is agreeable to go to [facility] ER. Called over to [facility] ER spoke to Allison MORSE who is aware this patient and Dr. Grimes accepted this patient for transfer. Offered patient EMS she declined states she will take herself via private vehicle. Patient is hemodynamically stable, in no apparent distress, resting comfortably. She is stable to take herself to the hospital via private vehicle. Advised patient remain NPO and proceed immediately to the ER. Differential Diagnosis Differential Diagnosis: ACS stable angina, unstable angina, congestive heart failure, lymphedema, venous insufficiency, athlete's foot, syphilis rash, eczema, yeast infection, contact dermatitis Vital Signs Vital Signs: Vital Signs Temperature 97.6 F 07/24/25 17:46 Pulse Rate 77 07/24/25 17:46 Respiratory Rate 20 07/24/25 17:46 Blood Pressure 124/76 07/24/25 17:46 Pulse Oximetry 98 07/24/25 17:46 Oxygen Delivery Room Air 07/24/25 17:46 Temperature 97.6 F 07/24/25 17:46 Pulse Rate 77 07/24/25 17:46 Respiratory Rate 20 07/24/25 17:46 Blood Pressure 124/76 07/24/25 17:46 Pulse Oximetry 98 07/24/25 17:46 Oxygen Delivery Room Air 07/24/25 17:46 ECG Data EKG #1: ECG completion date: 07/24/25 ECG completion time: 17:59 Prior ECG tracings: not available for review EKG Interpretation: normal rate, sinus rhythm, no ectopy, no ST changes, normal QRS, normal QT and NL axis Critical Care Time Critical Care Time Critical Care Time: No Discharge Plan Discharge Clinical Impression: Chest tightness, Athlete's foot Patient Disposition: Acute Care Hospital Condition: Stable Patient Language: Cypriot Prescriptions: New clotrimazole 1 % cream 1 applic topical BID 28 Days Qty: 45 0RF Rx Instructions: apply to affected areas No Action albuterol sulfate [ProAir HFA] 90 mcg/actuation HFA aerosol inhaler 2 puff INHALATION QID PRN (Reason: shortness of breath or wheezing) Qty: 18 0RF sertraline 100 mg tablet buprenorphine-naloxone 8-2 mg tablet, sublingual SUBLINGUAL Follow-up/Referrals: PHYSICIAN,FITTINGS TIGHTENER [Primary Care Provider, Internal Medicine] Stand Alone Forms: Work/School Release IP Time of Disposition: 18:16
== END 2025-07-24 18:24 | disposition short-term general hospital (02) ==
DX: B35.3 Tinea pedis (principal); R07.89 Other chest pain; I10 Essential (primary) hypertension; E28.2 Polycystic ovarian syndrome; F17.200 Nicotine dependence, unspecified, uncomplicated
CPT/HCPCS: 93005; 99213; G0463